=== PATIENT | female | born 1950 | race Caucasian/White ===

== ENCOUNTER 2020-02-12 10:48 | Outpatient (REF) | payer MEDICARE, MEDICAID, SELFPAY ==
--- NOTE | 2020-02-12 | MM_ITS ---
EXAMINATION: MM SCREENING DIGITAL BREAST TOMOSYNTHESIS, BILATERAL CLINICAL INFORMATION: Screening. Asymptomatic. The lifetime risk of breast cancer based on the Tyrer-Cuzick Model is 2.9%. COMPARISON: Mammography: October 22, 2018 and studies dating back to February 13, 2011 TECHNIQUE: Digital breast tomosynthesis is performed in both the craniocaudal and mediolateral oblique views along with computer-aided detection (CAD). Synthesized 2D images are generated from the tomosynthesis. FINDINGS: The breasts are heterogeneously dense, which may obscure small masses (ACR BI-RADS breast composition Category c). There are no significant masses, abnormal calcifications, or other abnormalities. MM/MM tomosynthesis screening BI IMPRESSION: There are no significant changes from prior study. ASSESSMENT: BI-RADS 1: Negative RECOMMENDATION: Routine annual mammography screening. This patient's information was entered into a reminder system with a target due date for their next mammogram.
== END 2020-02-12 10:49 | disposition home or self-care (01) ==
LOC: HO.MAMMO 10:48
PROVIDERS: PCP Family Medicine; Visit Provider Family Medicine
DX: Z12.31 Encounter for screening mammogram for malignant neoplasm of breast (principal)
CPT/HCPCS: 77063; 77067

== ENCOUNTER 2020-03-01 12:56 | Outpatient (REF) | payer MEDICARE, MEDICAID, SELFPAY | END 2020-03-01 12:57 | disposition home or self-care (01) | LOC: HO.LAB 12:56 | PROVIDERS: Visit Provider Internal Medicine | DX: Z20.828 Contact with and (suspected) exposure to other viral communicable diseases (principal) | CPT/HCPCS: C9803; U0003 ==

== ENCOUNTER 2020-03-08 10:06 | Outpatient (REF) | payer MEDICARE, MEDICAID, SELFPAY | END 2020-03-08 10:07 | disposition home or self-care (01) | LOC: HO.LAB 10:06 | PROVIDERS: PCP Family Medicine; Visit Provider Internal Medicine | DX: Z20.822 Contact with and (suspected) exposure to COVID-19 (principal) | CPT/HCPCS: 36415; C9803; U0003 ==

== ENCOUNTER 2020-03-22 09:00 | Outpatient (REF) | payer MEDICARE, MEDICAID, SELFPAY | END 2020-03-22 09:01 | disposition home or self-care (01) | LOC: HO.LAB 09:00 | PROVIDERS: Visit Provider Internal Medicine | DX: Z20.822 Contact with and (suspected) exposure to COVID-19 (principal) | CPT/HCPCS: 36415; C9803; U0003 ==

== ENCOUNTER 2021-03-03 10:00 | Outpatient (REF) | payer MEDICARE, MEDICAID, SELFPAY ==
[2021-03-03 11:06] LABS: COVID-19 Test Negative (Negative); IDNOW Serial# 55D5AD1C
== END 2021-03-03 10:01 | disposition home or self-care (01) ==
LOC: HO.LAB 10:00
PROVIDERS: Visit Provider Internal Medicine
DX: Z20.822 Contact with and (suspected) exposure to COVID-19 (principal)
CPT/HCPCS: 36415; 87635; C9803

== ENCOUNTER 2021-03-07 10:02 | Outpatient (REF) | payer MEDICARE, SELFPAY ==
--- NOTE | ~2021-03-07 | MM_ITS ---
EXAMINATION: MM SCREENING DIGITAL BREAST TOMOSYNTHESIS, BILATERAL CLINICAL INFORMATION: Screening. Asymptomatic. The lifetime risk of breast cancer based on the Tyrer-Cuzick Model is 3%. COMPARISON: Mammography: 02/12/2020, 10/22/2018, 10/04/2017 TECHNIQUE: Digital breast tomosynthesis is performed in both the craniocaudal and mediolateral oblique views along with computer-aided detection (CAD). Synthesized 2D images are generated from the tomosynthesis. FINDINGS: There are scattered areas of fibroglandular density (ACR BI-RADS breast composition Category b). There are no significant masses, abnormal calcifications, or other abnormalities. Breast tissue composition borders on heterogeneously dense in the upper outer quadrant. Parenchymal pattern is similar to prior studies. No developing density. No significant changes. MM/MM tomosynthesis screening BI IMPRESSION: No mammographic evidence of malignancy. ASSESSMENT: BI-RADS 1: Negative RECOMMENDATION: Routine annual mammography screening. This patient's information was entered into a reminder system with a target due date for their next mammogram.
== END 2021-03-07 10:03 | disposition home or self-care (01) ==
LOC: HO.MAMMO 10:02
PROVIDERS: Visit Provider Registered Nurse
DX: Z12.31 Encounter for screening mammogram for malignant neoplasm of breast (principal)
CPT/HCPCS: 77063; 77067

== ENCOUNTER 2021-06-02 07:37 | Outpatient (REF) | payer OTHER, SELFPAY ==
--- NOTE | ~2021-06-02 | MM_ITS ---
EXAMINATION: BONE DENSITOMETRY CLINICAL INDICATION: Screening. COMPARISON: Previous BD dated 06/18/2018 and baseline BD dated 11/04/2010. TECHNIQUE: Using a The RealReal DXA System (software version: 13.1) manufactured by [employer], dual-energy x-ray absorptiometry was performed of the lumbar spine and left hip. The images are of good technical quality. Summary results are attached. FINDINGS: AP SPINE L1-L4: Current: BMD 0.906 g/cm2, Z-score -0.6, T-score -2.3, osteopenia, 2.9% decrease from previous, 7.8% decrease from baseline (<5% change is not significant). Prior: BMD 0.933 g/cm2. Baseline: BMD 0.983 g/cm2. LEFT FEMUR, NECK: Current: BMD 0.800 g/cm2, Z-score 0.0, T-score -1.7, osteopenia. Prior: BMD 0.794 g/cm2. Baseline: BMD 0.832 g/cm2. LEFT FEMUR, TOTAL: Current: BMD 0.785 g/cm2, Z-score -0.3, T-score -1.8, osteopenia, 3.2% decrease from previous, 3.6% decrease from baseline (<5% change is not significant). Prior: BMD 0.811 g/cm2. Baseline: BMD 0.814 g/cm2. IDENTIFIED RISK FACTORS: Menopause, hyperthyroid, low calcium intake, secondary osteoporosis. HISTORY OF FRACTURE: None listed. MEDICATIONS: Calcium. MM/XR DEXA axial skeleton IMPRESSION: 1. DIAGNOSIS: Osteopenia based on the lowest T-score value of -2.3 in the lumbar spine applying World Health Organization criteria. 2. 10-YEAR FRACTURE RISK PREDICTION, FRAX: Major osteoporotic fracture (clinical spine, forearm, hip or shoulder) 6.0%. Hip fracture 1.0%. 3. Treatment Recommendations: NOF guidelines recommend consideration for treatment in postmenopausal women and men age 50 and older presenting with the following: -A hip or vertebral (clinical or morphometric) fracture. -T-score less than or equal to -2.5 at the femoral neck or spine after appropriate evaluation to exclude secondary causes. -Low bone mass at the hip or spine and a 10-year fracture probability by FRAX of greater than or equal to 3% for hip fracture or greater than or equal to 20% for major osteoporotic fracture based on the [place] adapted WHO algorithm. 4. Other Recommendations: All treatment decisions require clinical judgment and consideration of individual patient factors, including patient preferences, comorbidities, previous drug use, risk factors not captured in the FRAX model (e.g. frailty, falls, vitamin D deficiency, increased bone turnover, interval significant decline in bone density) and possible under or overestimation of fracture risk by FRAX. Additional medical evaluation for secondary cause of low bone mineral density may be appropriate. FUTURE SCAN RECOMMENDATION: People with diagnosed cases of osteoporosis or at high risk for fracture should have regular bone mineral density tests. For patients eligible for Medicare, routine testing is allowed once every 2 years. The testing frequency can be increased to one year for patients who have rapidly progressing disease, those who are receiving or discontinuing medical therapy to restore bone mass, or have additional risk factors.
== END 2021-06-02 07:38 | disposition home or self-care (01) ==
LOC: HO.MAMMO 07:37
PROVIDERS: PCP Registered Nurse; Visit Provider Registered Nurse
DX: Z13.820 Encounter for screening for osteoporosis (principal); Z78.0 Asymptomatic menopausal state; M85.80 Other specified disorders of bone density and structure, unspecified site
CPT/HCPCS: 77080

== ENCOUNTER 2021-08-15 09:31 | Outpatient (REF) | payer OTHER, SELFPAY ==
--- NOTE | ~2021-08-15 | XR_ITS ---
EXAMINATION: XR PELVIS CLINICAL INFORMATION: Low back pain COMPARISON: None TECHNIQUE: AP view of the pelvis. FINDINGS: The bones and soft tissues are normal. No fracture. Sacroiliac and hip joints are normal. Pubic symphysis is normal. No abnormal soft tissue calcifications. XR/XR pelvis 1-2V IMPRESSION: Unremarkable AP pelvis exam.
--- NOTE | ~2021-08-15 | XR_ITS ---
EXAMINATION: XR LUMBOSACRAL SPINE WITH OBLIQUES CLINICAL INFORMATION: Low back pain COMPARISON: None TECHNIQUE: AP, both oblique, and lateral views of the lumbar spine. Lateral view of the lumbosacral junction. FINDINGS: Bone alignment is normal. No fracture or dislocation is seen. There is mild degenerative disc disease at L5-S1. There is lower lumbar spine facet arthritis. No pars defect is seen. There is evidence of atherosclerotic disease. XR/XR lumbar spine 4V min IMPRESSION: Degenerative disc disease at L5-S1 and lower lumbar spine facet arthritis.
== END 2021-08-15 09:32 | disposition home or self-care (01) ==
LOC: HO.XRAY 09:31
PROVIDERS: PCP Registered Nurse; Visit Provider Registered Nurse
DX: M54.50 Low back pain, unspecified (principal)
CPT/HCPCS: 72110; 72170

== ENCOUNTER 2022-03-13 10:12 | Outpatient (REF) | payer OTHER, SELFPAY ==
--- NOTE | ~2022-03-13 | MM_ITS ---
EXAMINATION: MM SCREENING DIGITAL BREAST TOMOSYNTHESIS, BILATERAL CLINICAL INFORMATION: Screening. Asymptomatic. The lifetime risk of breast cancer based on the Tyrer-Cuzick Model is 2.3%. COMPARISON: Mammography: March 07, 2021 and studies dating back to June 02, 2015 TECHNIQUE: Digital breast tomosynthesis is performed in both the craniocaudal and mediolateral oblique views along with computer-aided detection (CAD). Synthesized 2D images are generated from the tomosynthesis. FINDINGS: The breasts are heterogeneously dense, which may obscure small masses (ACR BI-RADS breast composition Category c). There are no significant masses, abnormal calcifications, or other abnormalities. MM/MM tomosynthesis screening BI IMPRESSION: No significant changes from prior exam. ASSESSMENT: BI-RADS 1: Negative RECOMMENDATION: Routine annual mammography screening. This patient's information was entered into a reminder system with a target due date for their next mammogram.
== END 2022-03-13 10:13 | disposition home or self-care (01) ==
LOC: HO.MAMMO 10:12
PROVIDERS: PCP Registered Nurse; Visit Provider Registered Nurse
DX: Z12.31 Encounter for screening mammogram for malignant neoplasm of breast (principal)
CPT/HCPCS: 77063; 77067

== ENCOUNTER 2023-03-19 10:01 | Outpatient (REF) | payer OTHER, SELFPAY | END 2023-03-19 10:02 | disposition home or self-care (01) | LOC: HO.MAMMO 10:01 | PROVIDERS: PCP Registered Nurse; Visit Provider Registered Nurse | DX: Z12.31 Encounter for screening mammogram for malignant neoplasm of breast (principal) | CPT/HCPCS: 77063; 77067 ==

== ENCOUNTER → 2023-03-19 10:30 | Outpatient (BNV) | payer OTHER, SELFPAY | PROVIDERS: PCP Registered Nurse; Visit Provider Radiology Diagnostic Radiology | DX: Z12.31 Encounter for screening mammogram for malignant neoplasm of breast (principal) | CPT/HCPCS: 77063; 77067 ==

== ENCOUNTER 2023-04-16 09:52 | Outpatient (REF) | payer OTHER, SELFPAY ==
--- NOTE | ~2023-04-16 | XR_ITS ---
EXAMINATION: XR LUMBOSACRAL SPINE CLINICAL INFORMATION: Patient daughter states low back pain, right-sided, for one week, no injury. Difficult to get images of L5-S1, best images obtained per technologist. COMPARISON: 08/15/2021 lumbar spine radiographs. TECHNIQUE: Three views of the lumbosacral spine.Difficult to get images of L5-S1, best images obtained per technologist. FINDINGS: The bones are diffusely demineralized. Facet arthritis in the lower lumbar spine. Degenerative changes with sclerosis on images of the bilateral sacroiliac joints. Degenerative changes in the imaged lower thoracic spine. Redemonstration of mild endplate concavities at L4 and L5. Mild degenerative changes with loss of disc space height at L4-L5 and L5-S1. Visualization limited due to overlying bone and soft tissue structures. Atherosclerotic aortoiliac calcifications. XR/XR lumbar spine 2-3V IMPRESSION: 1. Mild degenerative disc disease at L4-L5 and L5-S1. 2. Facet arthritis in the lower lumbar spine. 3. Degenerative changes in the bilateral sacroiliac joints.
[2023-04-16 12:35] LABS: Alanine Aminotransferase 25 U/L (0-31); Albumin Level 3.9 g/dL (3.5-5.0); Alkaline Phosphatase 138 U/L (39-117); Anion Gap 15 (12-20); Aspartate Amino Transferase 28 U/L (5-31); Bilirubin Total 0.8 mg/dL (0.0-1.0); Blood Urea Nitrogen 18 mg/dL (9-16); Calcium 9.9 mg/dL (8.4-10.2); Carbon Dioxide 26 mmol/L (22-29); Chloride 105 mmol/L (96-108); Cholesterol 130 mg/dL (<200); Estimated Glomerular Filt Rate > 60; Glucose Random 97 mg/dL (60-115); HDL Cholesterol 46 mg/dL (>40); LDL Cholesterol Calculated 68 mg/dL (<100); Potassium 3.9 mmol/L (3.3-5.1); Sodium 142 mmol/L (135-145); Total Protein 7.5 g/dL (6.5-8.0); Triglycerides 81 mg/dL (<150)
== END 2023-04-16 09:53 | disposition home or self-care (01) ==
LOC: HO.HHCL 09:52
PROVIDERS: Visit Provider Registered Nurse
DX: M54.50 Low back pain, unspecified (principal); I10 Essential (primary) hypertension; G89.29 Other chronic pain
CPT/HCPCS: 36415; 72100; 80053; 80061

== ENCOUNTER 2023-06-11 10:28 | Outpatient (REF) | payer OTHER, SELFPAY ==
[2023-06-11 12:33] LABS: Alanine Aminotransferase 16 U/L (0-31); Albumin Level 3.8 g/dL (3.5-5.0); Alkaline Phosphatase 139 U/L (39-117); Aspartate Amino Transferase 21 U/L (5-31); Bilirubin Direct 0.3 mg/dL (0.0-0.5); Bilirubin Total 0.7 mg/dL (0.0-1.0)
[2023-06-11 14:46] LABS: Gamma Glutamyl Transpeptidase 16 U/L (7-33)
== END 2023-06-11 10:29 | disposition home or self-care (01) ==
LOC: HO.HHCL 10:28
PROVIDERS: Visit Provider Registered Nurse
DX: E78.2 Mixed hyperlipidemia (principal); E05.90 Thyrotoxicosis, unspecified without thyrotoxic crisis or storm; R74.8 Abnormal levels of other serum enzymes
CPT/HCPCS: 36415; 80076; 82977

== ENCOUNTER 2023-06-21 10:08 | Outpatient (REF) | payer OTHER, SELFPAY ==
[2023-06-21 11:28] LABS: MANUAL DIFF FLAG NO
[2023-06-21 11:40] LABS: Basophils Percent Auto 0.7 % (0-2); Eosinophils Absolute Auto 0.1 X10*3/uL (0.0-0.4); Eosinophils Percent Auto 2.3 % (0-4); Hematocrit 39.9 % (37.0-47.0); Hemoglobin 13.2 g/dl (12.0-16.0); Imm Gran Abs Auto 0.02 X10*3/uL (0.00-0.03); Imm Gran Pct Auto 0.4 % (0.0-0.4); Lymphocytes Absolute Auto 2.2 X10*3/uL (1.2-4.9); Lymphocytes Percent Auto 39.5 % (20-40); Mean Corpuscular HGB Conc 33.1 g/dl (31.0-35.0); Mean Corpuscular Hemoglobin 28.8 pg (27.0-33.0); Mean Corpuscular Volume 87.1 fL (80.0-98.0); Mean Platelet Volume 10.4 fL (9.4-12.3); Monocytes Absolute Auto 0.7 X10*3/uL (0.1-1.2); Monocytes Percent Auto 11.6 % (2-11); Neutrophils Absolute Auto 2.5 x10*3/uL (2.0-8.3); Neutrophils Percent Auto 45.5 % (45-73); Platelet Count 262 X10*3/uL (160-400); Red Blood Count 4.58 X10*6/uL (4.20-5.50); Red Cell Distribution Width 12.8 % (11.0-16.0); White Blood Count 5.6 X10*3/uL (4.8-10.8)
[2023-06-25 14:03] LABS: Alk.Phos Iso. Macrohepatic 0 % (<=0); Alk.Phos Isoenzymes Bone 61 % (28-66); Alk.Phos Isoenzymes Intest 0 % (1-24); Alk.Phos Isoenzymes Liver 39 % (25-69); Alk.Phos Isoenzymes Placental 0 % (<=0); Alk.Phos Isoenzymes Total 137 U/L (37-153)
== END 2023-06-21 10:09 | disposition home or self-care (01) ==
LOC: HO.HHCL 10:08
PROVIDERS: Visit Provider Registered Nurse
DX: R74.8 Abnormal levels of other serum enzymes (principal)
CPT/HCPCS: 36415; 84080; 85025

== ENCOUNTER 2023-09-10 10:23 | Outpatient (REF) | payer OTHER, SELFPAY ==
[2023-09-10 11:57] LABS: Alanine Aminotransferase 18 U/L (0-31); Alkaline Phosphatase 130 U/L (39-117); Aspartate Amino Transferase 21 U/L (5-31); Bilirubin Direct 0.3 mg/dL (0.0-0.5); Bilirubin Total 0.7 mg/dL (0.0-1.0); Free T4 (Free Thyroxine) 1.44 ng/dL (0.71-1.85); Thyroid Stimulating Hormone < 0.01 uIU/mL (0.32-4.0); Total Protein 7.2 g/dL (6.5-8.0)
== END 2023-09-10 10:24 | disposition home or self-care (01) ==
LOC: HO.HHCL 10:23
PROVIDERS: Visit Provider Registered Nurse
DX: R74.8 Abnormal levels of other serum enzymes (principal)
CPT/HCPCS: 36415; 80076; 84439; 84443

== ENCOUNTER 2024-03-31 10:52 | Outpatient (REF) | payer OTHER, SELFPAY ==
--- OUTSIDE RECORDS SUMMARY | 2024-03-31 15:46 | XMS_ITS | Encounter Summary ---
Author Organization [employer] [facility] Address [address] [place] [address] Care Team Providers Care Protective Signal Installer Name Role Phone [facility] DISABILITY REPRESENTATIVE Primary Care Provider [phone] Encounter Details Date Type Department Care Team (Late st Contact Info) Description 06/13/2023 Orders Only [facility] MEDICINE [address] [place] [address] ProviderAura MD Social History Tobacco Use Types Packs/Day Years Used Date Smoking Tobacco: Never Smokeless Tobacco: Never Alcohol Use Standard Drinks/Week Comments Never 0 (1 standard drink = 0.6 oz pur e alcohol) Alcohol Answer Date Recorded Frequency of Alcohol Consumption Not on file 06/11/2023 Average Number of Drinks Not on file 024 Frequency of Binge Drinking Not on file 10/2023 Score 0 06/11/2023 Depression Answer Date Recorded Patient Health Questionnaire-9 Score 1 06/11/2023 Patient Health Questionnaire-9 Score 1 06/11/2023 Last PHQ-9: Questionnaire Data Not on file 0 06/11/2023 Depression Answer Date Recorded Patient Health Questionnaire-2 Score 0 06/11/2023 Comments Unknown Sex and Gender Information Value Date Recorded Sex Assigned at Female 01/02/2022 10:14 AM EDT Legal Sex Female 10:14 AM EDT Gender Identity Female 01/02/2022 10:14 AM EDT Sexual Orientation Straight 01/02/2022 10 :14 AM EDT documented as of this encounter Plan of Treatment Upcoming Encounters Date Type Department Care Team (Late st Contact Info) Description 05/19/2024 10:00 AM EDT Office Visit [facility] MEDICINE [address] [place] [address] Katja Tony FNP [address] [place] [address] documented as of this encounter Procedures Procedure Name Priority Date/Time Associated Diagnosis Comments HM COLONOSCOPY Routine 08/24/2015 9:01 AM EDT documented in this encounter Results * Hm Colonoscopy (08/24/2015 9:01 AM EDT) us Historical Provider HEALTH MAINTENANCE Final Result documented in this encounter Visit Diagnoses Not on filedocumented in this encounter Additional Health Concerns Assessment Noted Time PHQ-9 Depression Total Score: 1 06/11/19 24 10:23 AM EDT documented as of this encounter Care Teams Protective Signal Installer Relationship Specialty Start Date End Date Katja Tony FNP [address] [place] [address] PCP - General Family Medicine 11/30/20 documented as of this encounter
--- OUTSIDE RECORDS SUMMARY | 2024-03-31 15:46 | XMS_ITS | Encounter Summary ---
Author Organization [employer] [facility] Address [address] [place] [address] Care Team Providers Care Marketing Data Specialist Name Role Phone [facility] Primary Care Provider [phone] Reason for Visit * Reason Onset Date Comments Referral 07/23/2023 Encounter Details Date Type Department Care Team ([facility] st Contact Info) Description 07/23/2023 Telephone [facility] MEDICINE [address] [place], [place] [phone] [facility] [address] [place], [place] [phone] Referral Social History Tobacco Use Types Packs/Day Years [...] AM EDT documented as of this encounter Miscellaneous Notes * Telephone Encounter - Karey Vallecillo RN - 07/23/2023 1:16 PM EDT Pt.'s PT referral from prior pt. To going in person to schedule appt., please place referral again if indicated. Original referral was for: Diagnosis M54.2 (ICD-10-CM) - Acute neck pain M62.838 (ICD-10-CM) - Muscle spasm And sent to [facility] in [place] * Telephone Encounter - Riaz Zaman - 07/23/2023 12:47 PM EDT Tc from pt calling in regards to physical therapy referral. Pt stated she did not receive a call from physical therapy for an appt so they decide to go today and they were informed pt would need new referral due to amount of time current referral was sent. If any questions please contact pt at [phone]. [facility] fax: [phone]. documented in this encounter Plan of Treatment Upcoming Encounters Date Type Department Care Team (Late st Contact Info) Description 05/19/2024 10:00 AM EDT Office Visit [facility] MEDICINE [address] [place] [address] Katja Tony FNP [address] [place] [address] documented as of this encounter Visit Diagnoses Not on filedocumented in this encounter Additional Health Concerns Assessment Noted Time PHQ-9 Depression Total Score: 1 06/11/19 24 10:23 AM EDT documented as of this encounter Care Teams Marketing Data Specialist Relationship Specialty Start Date End Date Katja Tony FNP [address] [place] [address] PCP - General Family Medicine 11/30/20 documented as of this encounter
--- OUTSIDE RECORDS SUMMARY | 2024-03-31 15:46 | XMS_ITS | Encounter Summary ---
Author Organization [employer] [facility] Address [address] [place] [address] [address] [place] [address] Care Team Providers Care Customer Service Operator Name Role Phone [facility] Primary Care Provider [phone] Reason for Visit * Reason Comments Med Refill Encounter Details Date Type Department Care Team (Late st Contact Info) Description 05/10/[address] [facility] MEDICINE [address] [place], [place] [phone] [facility] [address] [place], [place] [phone] Social History Tobacco Use Types Packs/Day Years Used Date Smoking Tobacco: Never Smokeless Tobacco: Never Alcohol Use Standard Drinks/Week Comments Never 0 (1 standard drink = 0.6 oz pur e alcohol) Depression Answer Date Recorded Patient Health Questionnaire-9 Score 0 04/16/2023 Patient Health Questionnaire-9 Score 0 04/16/2023 Last PHQ-9: Questionnaire Data Not on file 0 04/16/2023 Depression Answer Date Recorded Patient Health Questionnaire-2 Score 0 04/16/2023 Comments Unknown Sex and Gender Information Value [...] Description 05/19/2024 10:00 AM EDT Office Visit [facility] MEDICINE [address] [place] [address] [facility], [address] [place] [address] documented as of this encounter Visit Diagnoses Not on filedocumented in this encounter Additional Health Concerns Assessment Noted Time PHQ-9 Depression Total Score: 0 04/16/19 24 9:00 AM EST documented as of this encounter Care Teams Customer Service Operator Relationship Specialty Start Date End Date Katja Tony FNP [address] [place] [address] PCP - General Family Medicine 11/30/20 documented as of this encounter
--- OUTSIDE RECORDS SUMMARY | 2024-03-31 15:46 | XMS_ITS | Data Portability ---
Author Organization [email or web address] Address [address] [place] [id number] Care Team Providers Care Special Procedures Nurse Name Role Phone [facility] Referring Provider [facility] Referring Provider Assessment No assessment recorded. Plan of Treatment Reminders Order Date Submit Date Provider Last Modified By Organization Details Last Modified Time Details Appointments None recorded. Lab None recorded. Referral None recorded. Procedures None recorded. Surgeries None recorded. Imaging None recorded. Medication Orders azithromyci n 250 mg tablet 2021 [id number], [address], [place], [id number], 2 14:30:31 amoxicillin 875 mg-potassiu m clavulanate 125 mg tablet 2021 022 [facility][id number], [address], [place], [id number], 2 14:30:32 Patient TargetsNo targets recorded. Patient InstructionsNo instructions recorded. Reason for Referral None Reported. Medical Equipment None Reported. Medications Name Sig Start Date Stop Date Status Note LastModified by Organization Details LastModified Time azithromycin 250 mg tablet TAKE 2 TABLETS (500 MG) BY ORAL ROUTE ONCE DAILY FOR 1 DAY THEN 1 TABLET (250 MG) BY ORAL ROUTE ONCE DAILY FOR 4 DAYS active Not Available Not Available No t Available ibuprofen 800 mg tablet active Not Available Not Available No t Available enalapril 5 mg-hydrochlorot hiazide 12.5 mg tablet TAKE 1 TABLET BY MOUTH DAILY active Not Available Not Available No t Available acetaminophen 500 mg tablet TAKE 2 TABLETS BY MOUTH EVERY 8 HOURS NEEDED active Not Available Not Available No t Available ibuprofen 400 mg tablet TAKE 1 TABLET BY MOUTH EVERY 4 TO 6 HOURS NEEDED active Not Available Not Available No t Available methimazole 5 mg tablet TAKE 1 TABLET BY MOUTH DAILY active Not Available Not Available No t Available amoxicillin 875 mg-potassium clavulanate 125 mg tablet TAKE 1 TABLET BY MOUTH EVERY 12 HOURS FOR 5 DAYS active Not Available Not Available No t Available rosuvastatin 10 mg tablet TAKE 1 TABLET BY MOUTH EVERY DAY active Not Available Not Available No t Available calcium 600 mg (as carbonate)-shelby min D3 10 mcg (400 unit) tablet TAKE 1 TABLET BY MOUTH TWICE DAILY active Not Available Not Available No t Available Vitals Date Recorded Heart rate Body temperature Respiratory rate Oxygen saturation Oxygen saturation in Arterial blood by Pulse oximetry Systolic blood pressure Diastolic blood pressure Provider Name and Address Organization Details Last Updated DateTime 2 90 /min 98.5 [degF] 18 /min 98 % 98 % 120 mm[Hg] 70 mm[Hg] Not Available [facility] - production 2 14:12:20 Social History None recorded. Functional Status None recorded. Mental Status None recorded. Family History Nothing Reported. Medical History No medical history recorded. Gynecological HistoryNo gynecological history recorded. Obstetrics History GPAL:G 0 P 0 0 0 0 Past Encounters Encounter ID Performer Location Encounter Start Date Encounter Closed Date Diagnosis/Indication Diagnosis SNOMED-CT Code Diagnosis ICD10 Code Diagnosis Note [id number] Татьяна Salmon MD [facility] [address] [place] [phone] 09/02/2021 14:12:18 11/02/2021 11:30:30 Dyspnea 409404804 R06.00 dyspnea x1 week. R side w/ upper>lowe r ronchi and non-produc tive cough. Covid negative x1. No systemic symptoms. worse with lying flat. never had similar sx. walked a mile yesterday. no weight gain and no edema. no recent travel, no exposure to TB or other sick contacts. never smoker. feels like something is stuck in chest - most likely CAP vs atypical pna. will prescribe augmentin BID + azithro x5d- if not improved in3-5d, would need consider broader dx which will require CXR Health Concerns Section Related Observation LastModified by Organization Detai ls LastModified Time None Recorded Concern Status LastModified by Organization Details LastModified Time None Recorded Advance Directives Directive None Recorded Payers Encounter Date Sequence Insurance Name Policy Number Policy Dangelo Covered Member ID Dangelo Member ID Guarantor Name 09/02/2021 1 [facility] - DOS PRIOR TO 2022 - DUAL ELIGIBLE (MEDICARE REPLACEMENT/AD VANTAGE - HMO) Shanelle Segura [id number] Shanelle Segura Notes Date Note Type Note Provider Name and Address Organization Details Recorded Time 09/02/2021 text/html HPI: ALLERGIC TO ; SULFAMETHOXAOLE, TRIMETHOPRIM Patient with coarse cough and congestion per report. Covid Test negative x 2. ................... ................... ................... ................... ................... ................... ................... ........ CRC Nursing Assessment: Comments: CRC RN did not require any additional information to process this visit. ................... ................... ................... ................... ................... ................... ................... ........ Bakery Associate Note: Pt states [place] was [place] the beach last [place] and since that night she has felt like she had something in her lungs. Pt states she just feels SOB. Pt denies fever, n/v/d, headache, abd pain. Complains of dry cough. Vitals wnl. Right lung with rhonchhi especially in upper lobe. left lung clear in all das. [facility] contacted. Azythromicine and augmentin prescribed for Pt. Red flags discussed ................... ................... ................... ................... ................... ................... ................... ........ Disposition: Fulfilled Татьяна Salmon MD [address] [place] [address],[address] [facility], [place], [phone], [employer] [facility] [employer] 09/02/2021 17:51:11 OBGyn Episode No OBEpisode recorded.
--- OUTSIDE RECORDS SUMMARY | 2024-03-31 15:46 | XMS_ITS | Encounter Summary ---
Author Organization [employer] Address [address] [place] [address] Care Team Providers Care Car Sander Name Role Phone [facility] Primary Care Provider [phone] Encounter Details Date Type Department Care Team (Latest Contact Info) Description 03/17/2024 Travel Social History Tobacco Use Types Packs/Day Years [...] Date Recorded Patient Health Questionnaire-9 Score 0 09/10/2023 Patient Health Questionnaire-9 Score 0 09/10/2023 Last PHQ-9: Questionnaire Data Not on file 0 09/10/2023 Housing Stability Answer Date Recorded What is your housing situation today? I have nay myles 09/10/[address] you li ve. Do you have problems with any of the following? None of the above 09/10/2023 Food Insecurity Answer Date Recorded Within the past 12 months, y ou worried that your food would run out before you got money to buy more: Never True 09/10/2023 Within the past 12 months,th e food you bought just didn't last and you didn't have enough money to get more: Never True 10/2023 Transportation Answer Date Recorded In the past 12 months, has l ack of transportation kept you from medical appts, meetings, work or from getting things needed for daily living? No 09/10/2023 Utilities Answer Date Recorded In the past 12 months, has t he electric, gas, oil or water company threatened to shut off services in your home? No 09/10/2023 Depression Answer Date Recorded Patient Health Questionnaire-2 Score 0 09/10/2023 Internet Access Answer Date Recorded Internet Access Q1 Yes 11/05/2023 Internet Access Q2 Not on file 11/05/2023 Comments Unknown Sex and Gender Information Value [...] Description 05/19/2024 10:00 AM EDT Office Visit [facility] MEDICINE [address] [place] [address] Katja Tony FNP [address] [place] [address] documented as of this encounter Visit Diagnoses Not on filedocumented in this encounter Additional Health Concerns Assessment Noted Time PHQ-9 Depression Total Score: 0 09/10/19 24 9:47 AM EDT documented as of this encounter Care Teams Car Sander Relationship Specialty Start Date End Date Katja Tony FNP [address] [place] [address] PCP - General Family Medicine 11/30/20 documented as of this encounter
--- OUTSIDE RECORDS SUMMARY | 2024-03-31 15:46 | XMS_ITS | Clinical Summary ---
Author Organization [employer] Address [address] [facility] 7t [place] [address] Care Team Providers Care Cuff Slitter Name Role Phone [facility] Primary Care Provider [phone] Allergies No known active allergies Medications lidocaine (Lidoderm) 5 % patchIndication s:Acute neck pain,Muscle spasm Apply topically to affected areas. Leave on for up to 12 hours 30 patch 1 06/11/19 24 Active Calcium Carb-Cholecalci ferol 600-10 MG-MCG tablet TAKE 1 TABLET BY MOUTH TWICE DAILY. 180 tablet 1 07/06/19 24 Active calcium carbonate (Calcium 600) 600 MG tabletIndicatio ns:Osteopenia, unspecified location Take 1 tablet (600 mg) by mouth with breakfast and with evening meal. 60 tablet 07/20/19 24 025 Active cholecalciferol (Vitamin D3) 25 MCG (1000 UT) tabletIndicatio ns:Osteopenia, unspecified location Take 1 tablet (1,000 Units) by mouth Once per day. 30 tablet 11 07/20/19 24 Active rosuvastatin (Crestor) 10 MG tablet TAKE 1 TABLET BY MOUTH EVERY MORNING 90 tablet 1 11/07/19 24 Active Enalapril-hydro CHLOROthiazide 5-12.5 MG tablet TAKE 1 TABLET BY MOUTH EVERY MORNING 90 tablet 1 12/28/19 24 Active Blood Pressure kitIndications: Primary hypertension Use as directed 1 kit 03/17/19 25 Active ibuprofen 400 MG tabletIndicatio ns:Acute neck pain TAKE 1 TABLET BY MOUTH EVERY 4 TO 6 HOURS NEEDED 30 tablet 1 03/17/19 25 Active ibuprofen 400 MG tablet TAKE 1 TABLET BY MOUTH EVERY 4 TO 6 HOURS NEEDED 30 tablet 04/18/19 24 025 Discontinued(Re order (will not trigger notification to Pharmacy)) Active Problems Problem Noted Date Diagnosed Date Healthcare maintenance 04/26/2023 Overview (09/10/2023): Mammo: 03/2023 neg Pap: 01/2022-NIL HPV neg; OK to discontinue per patient preference. No prior abnormal C-scope: Neg 2015--repeat due 2025 BMD: Osteopenia. Due for repeat DEXA-->ordered 04/2023 Immunizations: Declines covid and shingles vaccine Dental q. 3 months UTD on eye exam Declines COVID Declines 2nd shingles Will consider RSV Primary hypertension 04/26/2023 Overview (04/26/2023): Enalapril-hydrochlorothiazide 5/12.5 - Aerobic exercise to reduce BP. Initial goal of 30 min walk 3-5x/week. Increase as tolerated. - low-sodium diet (goal: <2g/day) and heart healthy diet such as DASH to reduce BP and prevent ASCVD. - Home BP monitoring 1-2 x day with goal of <140/90. - Seek immediate medical attention for chest pain, palpitations, SOB, syncope, or sudden changes in mental status. - Do not change or discontinue current prescriptions without first consulting health care provider Assessment & Plan (04/26/2023 1:55 PM EST): Well controlled Continue current regimen Mixed hyperlipidemia 04/26/2023 Overview (04/26/2023): Rosuvastatin 10mg daily Hyperthyroidism 01/05/2021 Osteopenia 07/05/2018 Vitamin D deficiency 07/05/2018 Polyp of colon 10/31/2011 Encounters Date Type Department Care Team Description 03/17/2024 2:30 PM EST Office Visit [facility] [address] [place] [address] [facility] Primary hypertension (Primary Dx); Osteopenia, unspecified location; Acute neck pain; Encounter for immunization 03/17/2024 Travel from Last 3 Months Immunizations Name Administration Dates Next Due Hep B, adult 07/08/2009,11/03/2008,09/29/2008 Influenza High-dose Quadriva lent Preservative Free 12/20/2021 Influenza injectable quadriv alent preservative free 04/16/2023 Influenza, High Dose Seasona l, Preservative Free 03/17/2024 Pneumococcal Conjugate PCV 13 06/04/2018 Pneumococcal Conjugate PCV 20 12/20/2021 TD (adult), 2 Lf tetanus tox oid, preservative free, adsorbed 09/18/2014 Tdap 04/16/2023 Zoster, Recombinant 09/20/2023,05/11/2021 Zoster, live 09/18/2014 Social History Tobacco Use Types Packs/Day Years Used Date Smoking Tobacco: Never Smokeless Tobacco: Never Tobacco Cessation:Counseling Given: Not Answered Alcohol Use Standard Drinks/Week Comments Never 0 [...] Orientation Straight 01/02/2022 10 :14 AM EDT Last Filed Vital Signs Vital Sign Reading Time Taken Comments Blood Pressure 136/80 03/17/2024 2:31 PM EST Pulse 74 03/17/2024 2:31 PM EST Temperature 36.1 ??C (96.9 ??F) 03/17/2024 2:31 PM ES T Respiratory Rate 18 03/17/2024 2:31 PM EST Oxygen Saturation 98% 09/10/2023 9:40 AM EDT Inhaled Oxygen Concentration - - Weight 63.2 kg (139 lb 6.4 oz) 03/17/2024 2:31 P M EST Height 157.5 cm (5' 2 ) 03/17/2024 2:31 PM EST Body Mass Index 25.5 03/17/2024 2:31 PM EST Plan of Treatment Upcoming Encounters Date Type Department Care Team (Late st Contact Info) Description 05/19/2024 10:00 AM EDT Office Visit [facility] [address] [place] [address] [facility] [address] [place] [address] Health Maintenance Due Date Last Done Comments CT Colonography 1950 FIT DNA/Cologuard 1950 FIT 1950 FOBT 1950 Sigmoidoscopy 1950 COVID-19 Vaccine ( season) 2023 03/28/2021, 06/01/2020, 05/04/2020 Mammogram 03/19/2024 03/19/2023, 11/2022, 06/02/2021, Additional history exists Alcohol/Substance Use Screening 06/10/2024 06/11/2023 Depression Screening 09/09/2024 09/10/2023, 09/10/19 24 SDOH Screening 09/09/2024 09/10/2023 Tobacco Screening 03/18/2025 03/18/2024 Colonoscopy 08/23/2025 08/24/2015 Colorectal Cancer Screening 08/23/2025 RSV Patients and Patients Aged 60 years or older (1 - 1-dose 75+ series) 2026 Lipid Panel 04/16/2028 04/16/2023, 12/03, 08/10/2021, Additional history exists DTaP/Tdap/Td Vaccines (2 - Td or Tdap) 04/16/2033 04/16/2023, 09/18/2014 Hepatitis B Vaccines Completed 07/08/2009, 11/03/2008, 09/29/2008 Hepatitis C Screening Completed 01/08/2020 Pneumococcal Vaccine: 65+ Years Completed 12/20/2021, 06/04/2018 Zoster Vaccines Completed 09/20/2023, 03/0 11/2021, 09/18/2014 Influenza Vaccine Completed 03/17/2024, , 12/20/2021 HIB Vaccines Aged Out No longer eligi ble based on patient's age to complete this topic HPV Vaccines Aged Out No longer eligi ble based on patient's age to complete this topic Hepatitis A Vaccines Aged Out No long er eligible based on patient's age to complete this topic IPV Vaccines Aged Out No longer eligi ble based on patient's age to complete this topic Meningococcal Vaccine Aged Out No иван javier eligible based on patient's age to complete this topic RSV under 20 months Aged Out No longe r eligible based on patient's age to complete this topic Rotavirus Vaccines Aged Out No longer eligible based on patient's age to complete this topic Procedures Procedure Name Priority Date/Time Associated Diagnosis Comments LIPID PANEL, STANDARD Routine 04/16/2023 9:55 AM EST Primary hypertension BI MAMMOGRAM SCREENING TOMOSYNTHESIS BILATERAL Routine 03/19/2023 10:28 AM EST ZZZ HISTORICAL HEPATITIS C AB W/REFL TO HCV RNA, QN, PCR Routine 01/08/2020 10:50 AM EST HM COLONOSCOPY Routine 08/24/2015 9:01 AM EDT from Last 3 Months or Most Recently Relevant to Health Maintenance Results * Lipid Panel, Standard (04/16/2023 9:55 AM EST) Triglycerides 81 <150 mg/dL [facility] Comment:Desirable Triglyceri de: less than 150 mg/dLBorderline High Triglyceride 150-199 mg/dLHigh Triglyceride: 200-499 mg/dLVery High Triglyceride: greater than or equal to 5OO mg/dL Cholesterol 130 <200 mg/dL [facility] Comment:Desirable Cholestero l: less than 200 mg/dLBorderline High Cholesterol: 200-239 mg/dLHigh Cholesterol: greater than 239 mg/dL LDL Cholesterol Calculated 68 <100 mg/dL [facility] Comment:Desirable LDL: less than 100 mg/dLNear Optimal/Above Optimal LDL: 110- 129 mg/dLBorderline High LDL: 130-159 mg/dLHigh LDL: 160-189 mg/dLVery High LDL: greater than or equal to 190 mg/dL HDL Cholesterol 46 >40 mg/dL [facility] Comment:Desirable HDL: great er than 40 mg/dL Note: This HDL assay may give artificially low results in patients with liver disease. Blood Venous blood specimen / Unknown 04/16/2023 9:55 AM EST 04/16/2023 11:24 AM EST [facility] COKE CRUSHER OPERATOR LAB BLOOD ORDERABLES Final Re sult [facility] [address] [place] [address] [phone] * BI Mammogram Screening Tomosynthesis Bilateral (03/19/2023 10:28 AM EST) Anatomical Region Laterality Modality Breast Bilateral Mammography 03/19/2023 10:2 8 AM EST Narrative 04/06/2023 2:10 PM EST ? [facility] ? [address] ?[place] [address] ? Mammography Report ? Signed ? Patient: Segura,Shanelle ?MR#: [id number] ?? [id number] ? : 1950 ?Acct:[id number] ? Age/Sex: 73 / F ?ADM Date: 03/19/23 ? Loc: HO.MAMMO ? Attending Dr: Katja Tony COKE CRUSHER OPERATOR ? Ordering Physician: Katja Tony COKE CRUSHER OPERATOR ?Results: 1Nega ?? tive ? Date of Service: 03/19/23 ?Follow Up: 1 Year From Orig ?? inal Mammogram ? Procedure(s): MM tomosynthesis screening BI ?? Accession Number(s): [id number] ? cc: Katja Tony COKE CRUSHER OPERATOR ? EXAMINATION: ?? MM SCREENING DIGITAL BREAST TOMOSYNTHESIS, BILATERAL ? CLINICAL INFORMATION: ? Screening. Asymptomatic. ? COMPARISON: ?? Mammography: This study is compared with prior exams dating back to ?? 2017. ? TECHNIQUE: ?? Digital breast tomosynthesis is performed in both the craniocaudal and ?? mediolateral oblique views along with computer-aided detection (CAD). ?? Synthesized 2D images are generated from the tomosynthesis. ? FINDINGS: ?? The breasts are heterogeneously dense, which may obscure small masses ?? (ACR BI-RADS breast composition Category c). ? There are no significant masses, abnormal calcifications, or other ?? abnormalities. ? MM/MM tomosynthesis screening BI ?? IMPRESSION: ?? No mammographic evidence of malignancy. ? ASSESSMENT: ? BI-RADS BI-RADS 1 - Negative ? RECOMMENDATION: ?? Routine annual mammography screening. ? 1 year F/U ? This examination should not preclude the clinical evaluation of a ?? suspicious palpable abnormality. ? This patient's information was entered into a reminder system with a ?? target due date for their next mammogram. ? Dictated By: ?Joana Garcia MD ? Signed By: ?<Electronically signed by Joana Garcia MD in OV> ? 04/06/23 1406 ? DD/ 1028 ? TD/TT: ? Flue Dust Laborer: ? Procedure Note Lucas, Matthew - 04/06/[address] [facility] [address] [place], [place] [address] Mammography Report Signed Patient: Sharan Segura#: [id number] : 2Acct:[id number] Age/Sex: 73 / FADM Date: 03/19/23 Loc: HO.MAMMO Attending Dr: Katja Tony COKE CRUSHER OPERATOR Ordering Physician: Katja Tony FNPResults: 1Nega tive Date of Service: 03/19/23Follow Up: 1 Year From Orig inal Mammogram Procedure(s): MM tomosynthesis screening BI Accession Number(s): [id number] cc: Katja Tony COKE CRUSHER OPERATOR EXAMINATION: MM SCREENING DIGITAL BREAST TOMOSYNTHESIS, BILATERAL CLINICAL INFORMATION: Screening. Asymptomatic. COMPARISON: Mammography: This study is compared with prior exams dating back to 2017. TECHNIQUE: Digital breast tomosynthesis is performed in both the craniocaudal and mediolateral oblique views along with computer-aided detection (CAD). Synthesized 2D images are generated from the tomosynthesis. FINDINGS: The breasts are heterogeneously dense, which may obscure small masses (ACR BI-RADS breast composition Category c). There are no significant masses, abnormal calcifications, or other abnormalities. MM/MM tomosynthesis screening BI IMPRESSION: No mammographic evidence of malignancy. ASSESSMENT: BI-RADS BI-RADS 1 - Negative RECOMMENDATION: Routine annual mammography screening. 1 year F/U This examination should not preclude the clinical evaluation of a suspicious palpable abnormality. This patient's information was entered into a reminder system with a target due date for their next mammogram. Dictated By: Joana Garcia MD Signed By: <Electronically signed by Joana Garcia MD in OV> 04/06/23 1406 DD/ 1028 TD/TT: Flue Dust Laborer: [facility] COKE CRUSHER OPERATOR IMG BI PROCEDURES Final Resul t * HEPATITIS C AB W/REFL TO HCV RNA, QN, PCR (01/08/2020 10:50 AM EST) HEPATITIS C ANTIBODY NON-REACT BILLY NON-REACT BILLY [facility] INDEX 0.04 <1.00 [facility] Comment: ?? HCV antibody was non-reactive. There is no laboratory ?? evidence of HCV infection. ?? In most cases, no further action is required. However, if recent HCV exposure is suspected, a test for HCV RNA (test code 59013) is suggested. ?? For additional information please refer to http://education.[employer]faq/YDU73e8 (This link is being provided for informational/ educational purposes only.) ?? 01/08/2020 10:5 0 AM EST Jovita Ordonez MD HISTORICAL/NON ORDERABLE LABS Final Result [facility] [address] * Hm Colonoscopy (08/24/2015 9:01 AM EDT) Historical Provider HEALTH MAINTENANCE Final Result from Last 3 Months or Most Recently Relevant to Health Maintenance [place] [address] [place] [address] - [place] Care Teams Cuff Slitter Relationship Specialty Start Date End Date Katja Tony FNP [address] [place] [id number] PCP - General Family Medicine 11/30/20
--- OUTSIDE RECORDS SUMMARY | 2024-03-31 15:46 | XMS_ITS | Encounter Summary ---
Author Organization [employer] [facility] Address [address] [facility] 7t [place] [address] Care Team Providers Care Direct Casting Operator Name Role Phone Katja Tony Primary Care Provider [phone] Reason for Referral * Imaging (Routine) - Authorized Specialty Diagnoses / Procedures Referred By Contfreddy t Referred To Contact Radiology Diagnoses Osteopenia, unspecified location Procedures BD DEXA Axial Katja Tony FNP [address] [place] [address] Phone: tel: fax: [address] Phone: tel: fax: Referral ID Status Reason Start Date Expiration Date V isits Requested Visits Authorized [id number] Authorized 03/18/2024 03/18/2025 1 1 Reason for Visit * Reason Comments Follow-up Encounter Details Date Type Department Care Team (Late st Contact Info) Description 03/17/2024 2:30 PM EST Office Visit [facility] [address] [place], [place] [phone] Katja Tony FNP [address] [place], [place] [phone] Primary hypertension (Primary Dx); Osteopenia, unspecified location; Acute neck pain; Encounter for immunization Social History Tobacco Use Types Packs/Day Years [...] AM EDT documented as of this encounter Last Filed Vital Signs Vital Sign Reading Time Taken Comments Blood Pressure 136/80 03/17/2024 2:31 PM EST Pulse 74 03/17/2024 2:31 PM EST Temperature 36.1 ??C (96.9 ??F) 03/17/2024 2:31 PM ES T Respiratory Rate 18 03/17/2024 2:31 PM EST Oxygen Saturation - - Inhaled Oxygen Concentration - - Weight 63.2 kg (139 lb 6.4 oz) 03/17/2024 2:31 P M EST Height 157.5 cm (5' 2 ) 03/17/2024 2:31 PM EST Body Mass Index 25.5 03/17/2024 2:31 PM EST documented in this encounter Progress Notes * [facility] [address], [facility] - 03/17/2024 2:30 PM EST SUBJECTIVE: Shanelle Segura is a 74 y.o. year old female with HTN, osteopenia, chronic LBP and history of hyperthyroid (now resolved) who presents for blood pressure follow up . Denies recent illness, injury, or hospitalization. Acute Concerns: None. Doing well Interim Updates: Hyperthyroid-reestablished with [facility] endo. Restarted methimazole. Has follow up this week,. Need records. HTN- need new home BP kit. Social History Social History Narrative Tobacco Use: None ETOH: None Marijuana Use: None Other substance use: None Current living environment: Lives alone--senior housing. Daughter supports Sexually active: No Patient Active Problem List Diagnosis Healthcare maintenance Primary hypertension Hyperthyroidism Osteopenia Polyp of colon Vitamin D deficiency Mixed hyperlipidemia No past surgical history on file. No family history on file. Review of Systems Constitutional: Negative for fatigue, fever and unexpected weight change. Eyes: Negative for visual disturbance. Respiratory: Negative for apnea, chest tightness and shortness of breath. Cardiovascular: Negative for chest pain, palpitations and leg swelling. Neurological: Negative for dizziness, light-headedness and headaches. OBJECTIVE: Vitals: 03/17/24 1431 BP: 136/80 Pulse: 74 Resp: 18 Temp: 96.9 ??F (36.1 ??C) Physical Exam Constitutional: General: She is not in acute distress. Appearance: Normal appearance. HENT: Head: Normocephalic and atraumatic. Right Ear: External ear normal. Left Ear: External ear normal. Nose: Nose normal. Eyes: Conjunctiva/sclera: Conjunctivae normal. Cardiovascular: Rate and Rhythm: Normal rate and regular rhythm. Heart sounds: Normal heart sounds. Pulmonary: Effort: Pulmonary effort is normal. Breath sounds: Normal breath sounds. Skin: General: Skin is warm and dry. Neurological: General: No focal deficit present. Mental Status: She is alert and oriented to person, place, and time. Psychiatric: Mood and Affect: Mood normal. Behavior: Behavior normal. ASSESSMENT/PLAN 1. Primary hypertension (Primary) - Continue enalapril-hydrochlorothiazide 5/12.5 -Reviewed ED precautions to include chest pain, shortness of breath, severe headache, sudden visionchanges or BP >=180/>=120 mmHg. Contact HC if three or more BP readings >140/90. - Blood Pressure kit; Use as directed Dispense: 1 kit; Refill: 0 2. Osteopenia, unspecified location - Overdue for repeat DEXA - Continue daily vitamin D/calcium supplementation - Will reorder DEXA and follow up pending results - BD DEXA Axial; Future - BD DEXA Axial 4. Encounter for immunization - FLU VACCINE TRIVALENT HIGH DOSE 65 yrs + - Declines covid vaccine Follow Up: 6 months, PE Current Outpatient Medications on File Prior to Visit Medication Sig Dispense Refill Calcium Carb-Cholecalciferol 600-10 MG-MCG tablet TAKE 1 TABLET BY MOUTH TWICE DAILY. 180 tablet 1 calcium carbonate (Calcium 600) 600 MG tablet Take 1 tablet (600 mg) by mouth with breakfast and with evening meal. 60 tablet 11 cholecalciferol (Vitamin D3) 25 MCG (1000 UT) tablet Take 1 tablet (1,000 Units) by mouth Once per day. 30 tablet 11 Enalapril-hydroCHLOROthiazide 5-12.5 MG tablet TAKE 1 TABLET BY MOUTH EVERY MORNING 90 tablet 1 ibuprofen 400 MG tablet TAKE 1 TABLET BY MOUTH EVERY 4 TO 6 HOURS NEEDED 30 tablet 0 lidocaine (Lidoderm) 5 % patch Apply topically to affected areas. Leave on for up to 12 hours 30 patch 1 rosuvastatin (Crestor) 10 MG tablet TAKE 1 TABLET BY MOUTH EVERY MORNING 90 tablet 1 No current facility-administered medications on file prior to visit. Divehi Translation: Provided by [facility] staff member RAISA Diaz documented in this encounter Plan of Treatment Upcoming Encounters Date Type Department Care Team ([facility] st Contact Info) Description 05/19/2024 10:00 AM EDT Office Visit [facility] [address] [place] [address] [place] FNP [address] [place] [address] Scheduled Orders Name Type Priority Associated Diagnoses Orde r Schedule BD DEXA Axial Imaging Routine Osteopenia, unspecified location Expected: 03/18/2024, Expires: 03/18/2025 documented as of this encounter Visit Diagnoses Diagnosis Primary hypertension- Primary Unspecified essential hypertension Osteopenia, unspecified location Acute neck pain Encounter for immunization documented in this encounter Additional Health Concerns Assessment Noted Time PHQ-9 Depression Total Score: 0 09/10/19 24 9:47 AM EDT documented as of this encounter Care Teams Direct Casting Operator Relationship Specialty Start Date End Date [place] GISELE Hightower [address] [place] [address] PCP - General Family Medicine 11/30/20 documented as of this encounter
--- OUTSIDE RECORDS SUMMARY | 2024-03-31 15:46 | XMS_ITS | Encounter Summary ---
Author Organization [employer] [facility] Address [address] [place] [address] 7t [place] [address] Care Team Providers Care Dining Room Tables Set Up Attendant Name Role Phone [facility] Primary Care Provider [phone] Reason for Visit * Reason Comments Med Refill Encounter Details Date Type Department Care Team (Late st Contact Info) Description 05/24/2023 Refill [facility] [address] [place], [place] [phone] [facility] [address] [place], [place] [phone] Social History Tobacco Use Types Packs/Day Years [...] AM EDT Office Visit [facility] [address] [place] [address] [facility], [address] [place] [address] documented as of this encounter Visit Diagnoses Not on filedocumented in this encounter Additional Health Concerns Assessment Noted Time PHQ-9 Depression Total Score: 0 04/16/19 24 9:00 AM EST documented as of this encounter Care Teams Dining Room Tables Set Up Attendant Relationship Specialty Start Date End Date Katja Tony FNP [address] [place] [address] PCP - General Family Medicine 11/30/20 documented as of this encounter
--- OUTSIDE RECORDS SUMMARY | 2024-03-31 15:46 | XMS_ITS | Encounter Summary ---
Author Organization [employer] [facility] Address [address] [facility] 7t [place] [address] Care Team Providers Care Preflight Inspector Name Role Phone [facility] Primary Care Provider [phone] Reason for Visit * Reason Onset Date Comments Med Refill 05/22/2023 Encounter Details Date Type Department Care Team (Late st Contact Info) Description 05/22/2023 Telephone [facility] [address] [place], [place] [phone] [facility] [address] [place], [place] [phone] Med Refill Social History Tobacco Use Types Packs/Day Years [...] encounter Miscellaneous Notes * Telephone Encounter - Goldie Che LPN - 05/22/2023 9:02 AM EDT Medication was sent to [facility] #[id number] on 05/01/23 #90 with 1 refill. * Telephone Encounter - Timothy Perez - 05/22/2023 8:59 AM EDT TC from pt requesting medication refill. Medications needing refill : Enalapril-hydroCHLOROthiazide 5-12.5 MG tablet To be sent to: [id number] - [place], [place] - [address] documented in this encounter Plan of Treatment Upcoming Encounters Date Type Department Care Team (Late st Contact Info) Description 05/19/2024 10:00 AM EDT Office Visit [facility] [address] [place] [address] Katja Tony FNP [address] [place] [address] documented as of this encounter Visit Diagnoses Not on filedocumented in this encounter Additional Health Concerns Assessment Noted Time PHQ-9 Depression Total Score: 0 04/16/19 24 9:00 AM EST documented as of this encounter Care Teams Preflight Inspector Relationship Specialty Start Date End Date Katja Tony FNP [address] [place] [address] PCP - General Family Medicine 11/30/20 documented as of this encounter
== END 2024-03-31 10:53 | disposition home or self-care (01) ==
LOC: HO.MAMMO 10:52
PROVIDERS: PCP Registered Nurse; Visit Provider Registered Nurse
DX: Z12.31 Encounter for screening mammogram for malignant neoplasm of breast (principal)
CPT/HCPCS: 77063; 77067

== ENCOUNTER → 2024-03-31 11:15 | Outpatient (BNV) | payer OTHER, SELFPAY | PROVIDERS: PCP Registered Nurse; Visit Provider Internal Medicine | DX: Z12.31 Encounter for screening mammogram for malignant neoplasm of breast (principal) | CPT/HCPCS: 77063; 77067 ==

== ENCOUNTER 2024-04-17 08:52 | Outpatient (REF) | payer OTHER, SELFPAY ==
--- NOTE | ~2024-04-17 | MM_ITS ---
EXAMINATION: DXA BONE DENSITY AXIAL HISTORY: Estrogen deficiency TECHNIQUE: [employer] Dual energy absorptiometry (DEXA) of the lumbar spine, total left hip, and femoral neck was performed. COMPARISON: Comparison is made with the prior examination dated 06/02/2021. FINDINGS: The bone mineral density of the lumbar spine is 0.892 with a T-score of -2.4, and a Z-score of -0.5. This represents a BMD change of -1.5% compared to the prior exam. This is not statistically significant. The bone mineral density of the left total hip is 0.719 with a T-score of -2.3, and a Z-score of -0.5. This represents BMD change of -8.4% compared to the prior exam. This is statistically significant. The bone mineral density of the left femoral neck is 0.740 with a T-score of -2.1, and a Z-score of -0.2. This represents BMD change of -7.5% compared to the prior exam. FRACTURE RISK: The FRAX index suggests a ten year probability of major osteoporotic fracture of 9.7%, and of hip fracture 2.7%. MM/XR DEXA axial skeleton IMPRESSION: Based on bone mineral density, and according to World Health Organization (WHO) criteria, the diagnosis is consistent with osteopenia. All bone density values are in grams per centimeter squared (g/cm2). Statistically, 68% of repeat scans fall within 1 SD (+/- 0.010 g/cm2 for AP spine L1-L4) and 1 SD (+/- 0.012 g/cm2 for femur total) FRAX is a trademark of the [employer]'s [employer] for Metabolic Bone Disease, a World Health Organization (WHO) Collaborating Center. Electronically signed by: Westley Remy MD 04/17/2024 09:37 AM [facility]
--- OUTSIDE RECORDS SUMMARY | 2024-04-17 09:14 | XMS_ITS | Encounter Summary ---
Author Organization [employer] [facility] Address [address] [facility] [address]t [place] [address] Care Team Providers Care Quality Control Specialist Name Role Phone [facility] [employer] Primary Care Provider [phone] Encounter Details Date Type Department Care Team (Late st Contact Info) Description 06/13/2023 Orders Only [facility] [address] [place] [address] ProviderAura MD Social History Tobacco Use [...] Description 05/19/2024 10:00 AM EDT Office Visit [facility] [address] [place] [address] Katja Tony FNP [address] [place] [address] documented as of this encounter Procedures Procedure [...] documented as of this encounter Care Teams Quality Control Specialist Relationship Specialty Start Date End Date Katja Tony FNP [address] [place] [address] PCP - General Family Medicine 11/30/20 documented as of this encounter
--- OUTSIDE RECORDS SUMMARY | 2024-04-17 09:14 | XMS_ITS | Encounter Summary ---
Author Organization [employer] [facility] Address [address] [place] [address] 7t [place] [address] Care Team Providers Care Chip Silo Tender Name Role Phone [facility] Primary Care Provider [phone] Reason for Visit * Reason Comments Med Refill Encounter Details Date Type Department Care Team (Late st Contact Info) Description 05/10/2023 Refill [facility] [address] [place], [place] [phone] [facility] [address] [place], [place] [phone] Social History Tobacco Use Types Packs/Day Years [...] Description 05/19/2024 10:00 AM EDT Office Visit [facility] [address] [place] [address] [facility], [address] [place] [address] documented as of this encounter Visit Diagnoses Not on filedocumented in this encounter Additional Health Concerns Assessment Noted Time PHQ-9 Depression Total Score: 0 04/16/19 24 9:00 AM EST documented as of this encounter Care Teams Chip Silo Tender Relationship Specialty Start Date End Date Katja Tony FNP 230 [place] [address] PCP - General Family Medicine 11/30/20 documented as of this encounter
--- OUTSIDE RECORDS SUMMARY | 2024-04-17 09:15 | XMS_ITS | Encounter Summary ---
Author Organization [facility] Address [address] [facility] 7t [place] [address] Care Team Providers Care Supervisor Specialty Plant Name Role Phone [facility] Primary Care Provider [phone] Reason for Visit * Reason Onset Date Comments Med Refill 05/22/2023 Encounter Details Date Type Department Care Team (Late st Contact Info) Description 05/22/2023 Telephone [facility] 230 [place], [place] [phone] [facility] 230 [place], [place] [phone] Med Refill Social History Tobacco Use Types [...] 9:02 AM EDT Medication was sent to [facility] #[id number] on 05/01/23 #90 with 1 refill. * Telephone Encounter - Timothy Perez - 05/22/2023 8:59 AM EDT TC from pt requesting medication refill. Medications needing refill : Enalapril-hydroCHLOROthiazide 5-12.5 MG tablet To be sent to: [id number] - [place], [place] - [address] documented in this encounter Plan of Treatment Upcoming Encounters Date Type Department Care Team (Late st Contact Info) Description 05/19/2024 10:00 AM EDT Office Visit [facility] [address] [place] [address] Katja Tony FNP 230 [place] [address] documented as of this encounter Visit Diagnoses Not on filedocumented in this encounter Additional Health Concerns Assessment Noted Time PHQ-9 Depression Total Score: 0 04/16/19 24 9:00 AM EST documented as of this encounter Care Teams Supervisor Specialty Plant Relationship Specialty Start Date End Date Katja Tony FNP 230 [place] [address] PCP - General Family Medicine 11/30/20 documented as of this encounter
--- OUTSIDE RECORDS SUMMARY | 2024-04-17 09:15 | XMS_ITS | Clinical Summary ---
Author Organization [employer] Address [address] [facility] 7t [place] [address] Care Team Providers Care Bartender Helper Name Role Phone [facility] Primary Care Provider [phone] Allergies No known active allergies Medications lidocaine (Lidoderm) 5 % patchIndications: Acute neck pain,Muscle spasm Apply topically to affected areas. Leave on for up to 12 hours 30 patch 1 4 Active Calcium Carb-Cholecalcife rol 600-10 MG-MCG tablet TAKE 1 TABLET BY MOUTH TWICE DAILY. 180 tablet 1 4 Active calcium carbonate (Calcium 600) 600 MG tabletIndications :Osteopenia, unspecified location Take 1 tablet (600 mg) by mouth with breakfast and with evening meal. 60 tablet 11 4 07/20/19 25 Active cholecalciferol (Vitamin D3) 25 MCG (1000 UT) tabletIndications :Osteopenia, unspecified location Take 1 tablet (1,000 Units) by mouth Once per day. 30 tablet 11 4 Active rosuvastatin (Crestor) 10 MG tablet TAKE 1 TABLET BY MOUTH EVERY MORNING 90 tablet 1 4 Active Enalapril-hydroCH LOROthiazide 5-12.5 MG tablet TAKE 1 TABLET BY MOUTH EVERY MORNING 90 tablet 1 4 Active Blood Pressure kitIndications:Pr imary hypertension Use as directed 1 kit 5 Active ibuprofen 400 MG tabletIndications :Acute neck pain TAKE 1 TABLET BY MOUTH EVERY 4 TO 6 HOURS NEEDED 30 tablet 1 5 Active Active Problems Problem Noted Date Diagnosed Date [...] RSV Primary hypertension 04/26/2023 Overview (04/26/2023): Enalapril-hydrochlorothiazide 5/.5 - Aerobic exercise to reduce BP. Initial [...] Encounters Date Type Department Care Team Description 03/31/2024 Orders Only [facility] [address] [place] [address] HarlingenKatja FNP 03/17/2024 2:30 PM EST Office Visit [facility] [address] [place] [address] HarlingenKatja [facility] Primary hypertension (Primary Dx); Osteopenia, unspecified location; [...] Description 05/19/2024 10:00 AM EDT Office Visit [facility] [address] [place] [address] [facility] 230 [place] [address] Health Maintenance Due Date Last Done Comments CT Colonography 1950 FIT DNA/Cologuard 1950 FIT 1950 FOBT 1950 Sigmoidoscopy 1950 COVID-19 Vaccine ( season) 2023 03/28/2021, 06/01/2020, 05/04/2020 Alcohol/Substance Use Screening 06/10/2024 06/11/2023 Depression Screening 09/09/2024 09/10/2023, 09/10/19 SDOH Screening 09/09/2024 09/10/2023 Tobacco Screening 03/18/2025 03/18/2024 Mammogram 03/31/2025 03/31/2024, 03/05, 03/13/2022, Additional history exists Colonoscopy 08/23/2025 08/24/2015 Colorectal Cancer Screening 08/23/2025 RSV Patients and Patients Aged 60 years or older (1 - 1-dose 75+ series) 2026 Lipid Panel 04/16/2028 04/16/2023, 12/03, 08/10/2021, Additional history exists DTaP/Tdap/Td Vaccines (2 - Td or Tdap) 04/16/2033 04/16/2023, 09/18/2014 Hepatitis B Vaccines Completed 07/08/2009, 11/03/2008, 09/29/2008 Hepatitis C Screening Completed 01/08/2020 Pneumococcal Vaccine: 50+ Years Completed 12/20/2021, 06/04/2018 Zoster Vaccines Completed 09/20/2023, 11/2021, 09/18/2014 Influenza Vaccine Completed 03/17/2024, , [...] Procedure Name Priority Date/Time Associated Diagnosis Comments BI MAMMOGRAM SCREENING TOMOSYNTHESIS BILATERAL Routine 03/31/2024 11:00 AM EST LIPID PANEL, STANDARD Routine 04/16/2023 9:55 AM EST Primary hypertension ZZZ HISTORICAL HEPATITIS C AB W/REFL TO HCV RNA, QN, PCR Routine 01/08/2020 10:50 AM EST HM COLONOSCOPY Routine 08/24/2015 9:01 AM EDT from Last 3 Months or Most Recently Relevant to Health Maintenance Results * BI Mammogram Screening Tomosynthesis Bilateral (03/31/2024 11:00 AM EST) Anatomical Region Laterality Modality Breast Bilateral Mammography 03/31/2024 11:0 0 AM EST Narrative 04/08/2024 4:42 PM EST ? [facility] ? [address] ?[place] [address] ? Mammography Report ? Signed ? Patient: Segura,Shanelle ?MR#: [id number] ?? [id number] ? : 1950 ?Acct:[id number] ? Age/Sex: 74 / F ?ADM Date: 03/31/ ? Loc: HO.MAMMO ? Attending Dr: Katja Harlingen PROTOTYPE TECHNICIAN ? Ordering Physician: Harlingen,Katja PROTOTYPE TECHNICIAN ?Results: 1Nega ?? tive ? Date of Service: 03/31/ ?Follow Up: 1 Year From Orig ?? inal Mammogram ? Procedure(s): MM tomosynthesis screening BI ?? Accession Number(s): [id number] ? cc: Cecily,Katja PROTOTYPE TECHNICIAN ? EXAMINATION: ?? MM SCREENING DIGITAL BREAST TOMOSYNTHESIS, BILATERAL ? CLINICAL INFORMATION: ? Screening. Asymptomatic. ? COMPARISON: ?? Mammography: Comparison is made with available priors ? TECHNIQUE: ?? Digital breast mammography with tomosynthesis is performed in both the ?? craniocaudal and mediolateral oblique views along with computer-aided ?? detection (CAD). ? FINDINGS: ?? The breasts are heterogeneously [...] due date for their next mammogram. ? Electronically signed by: ??Jasmine Chong DO ??04/08/2024 04:39 PM EST ? Dictated By: ?Jasmine Chong DO ? Signed By: ?<Electronically signed by Jasmine Chong, DO in OV> ? 04/08/24 1639 ? DD/ 1100 ? TD/TT: 03/31/24 1121 ? Stretch Press Operator: ? Procedure Note Matthew Zavala - 04/08/2024 Martin [facility] [address] [place] [address] Mammography Report Signed Patient: Sharan Segura#: [id number] : 2Acct:[id number] Age/Sex: 74 / FADM Date: 03/31/24 Loc: HO.MAMMO Attending Dr: Katja Tony PROTOTYPE TECHNICIAN Ordering Physician: Katja Tony FNPResults: 1Nega tive Date of Service: 03/31/24Follow Up: 1 Year From Orig inal Mammogram Procedure(s): MM tomosynthesis screening BI Accession Number(s): [id number] cc: Katja Tony PROTOTYPE TECHNICIAN EXAMINATION: MM SCREENING DIGITAL BREAST TOMOSYNTHESIS, BILATERAL CLINICAL INFORMATION: Screening. Asymptomatic. COMPARISON: Mammography: Comparison is made with available priors TECHNIQUE: Digital breast mammography with tomosynthesis is performed in both the craniocaudal and mediolateral oblique views along with computer-aided detection (CAD). FINDINGS: The breasts are heterogeneously dense, which [...] target due date for their next mammogram. Electronically signed by: Jasmine Chong DO 04/08/2024 04:39 PM EST RP Dictated By: Jasmine Chong DO Signed By: <Electronically signed by Jasmine Chong DO in OV> 04/08/24 1639 DD/ 1100 TD/TT: 03/31/24 1121 Stretch Press Operator: [facility] PROTOTYPE TECHNICIAN IMG BI PROCEDURES Final Resul t * Lipid Panel, Standard (04/16/2023 9:55 AM EST) Triglycerides 81 <150 mg/dL [facility] Comment:Desirable Triglyceri de: less than 150 mg/dLBorderline High Triglyceride 150-199 mg/dLHigh Triglyceride: 200-499 mg/dLVery High Triglyceride: greater than or equal to 5OO mg/dL Cholesterol 130 <200 mg/dL [facility] Comment:Desirable Cholestero l: less than 200 mg/dLBorderline High Cholesterol: 200-239 mg/dLHigh Cholesterol: greater than 239 mg/dL LDL Cholesterol Calculated 68 <100 mg/dL [facility] Comment:Desirable LDL: less than 100 mg/dLNear Optimal/Above Optimal LDL: 110- 129 mg/dLBorderline High LDL: 130-159 mg/dLHigh LDL: 160-189 mg/dLVery High LDL: greater than or equal to 190 mg/dL HDL Cholesterol 46 >40 mg/dL [facility] Comment:Desirable HDL: great er than 40 mg/dL Note: This HDL assay may give artificially low results in patients with liver disease. Blood Venous blood specimen / Unknown 04/16/2023 9:55 AM EST 04/16/2023 11:24 AM EST [facility] PROTOTYPE TECHNICIAN LAB BLOOD ORDERABLES Final Re sult [facility] [address] [place] [address] [phone] * HEPATITIS C AB W/REFL TO HCV RNA, QN, PCR (01/08/2020 10:50 AM EST) HEPATITIS C ANTIBODY NON-REACT BILLY NON-REACT BILLY [facility] INDEX 0.04 <1.00 [facility] Comment: ?? HCV antibody was non-reactive. There is no laboratory ?? evidence of HCV infection. ?? In most cases, no further action is required. However, if recent HCV exposure is suspected, a test for HCV RNA (test code 42739) is suggested. ?? For additional information please refer to http://education.Let's Jock/faq/NEH78t5 (This link is being provided for informational/ educational purposes only.) ?? 01/08/2020 10:5 0 AM EST Jovita Ordonez MD HISTORICAL/NON ORDERABLE LABS Final Result Performing Organization Address City/[facility]/ZIP Co de Phone Number [facility] [address] [place] [address], * Hm Colonoscopy (08/24/2015 9:01 AM EDT) Historical Provider HEALTH MAINTENANCE Final Result from Last 3 Months or Most Recently Relevant to Health Maintenance Insurance [place] [address] - [place] Care Teams Bartender Helper Relationship Specialty Start Date End Date Katja Tony FNP [address] [place] [address] PCP - General Family Medicine 11/30/20
--- OUTSIDE RECORDS SUMMARY | 2024-04-17 09:15 | XMS_ITS | Data Portability ---
Author Organization [employer] Address [address] [place] [id number] Care Team Providers Care Camper Assembler Name Role Phone [facility] Referring Provider [facility] Referring Provider Assessment No assessment recorded. Plan of Treatment Reminders Order Date Submit Date Provider Last Modified By Organization Details Last Modified Time Details Appointments None recorded. Lab None recorded. Referral None recorded. Procedures None recorded. Surgeries None recorded. Imaging None recorded. Medication Orders azithromyci n 250 mg tablet 2021 [id number], [address] [place], [place], [id number], 2 14:30:31 amoxicillin 875 mg-potassiu m clavulanate 125 mg tablet 2021 022 [facility][id number], [address] [place], [place], [phone], 2 14:30:32 Patient TargetsNo targets recorded. Patient [...] 2462 Татьяна Salmon MD Main - [facility] [address] [place] [phone] 09/02/2021 14:12:18 11/02/2021 11:30:30 Dyspnea [id number] R06.00 dyspnea x1 week. R side w/ [...] Dangelo Member ID Guarantor Name 09/02/2021 1 [facility] - DOS PRIOR TO 2022 - DUAL ELIGIBLE (MEDICARE REPLACEMENT/AD VANTAGE - HMO) Shanelle Segura [id number] Shanelle Segura Notes Date Note Type Note [...] ................... ................... ................... ................... ................... ................... ........ Chief Librarian Extension Department Note: Pt states she was at the [...] ................... ........ Disposition: Fulfilled Татьяна Salmon MD [address] [place] [address],[address] [facility], [place], [phone], [employer] 09/02/2021 17:51:11 OBGyn Episode No OBEpisode recorded.
--- OUTSIDE RECORDS SUMMARY | 2024-04-17 09:15 | XMS_ITS | Encounter Summary ---
Author Organization [employer] Address [address] [facility] 7t [place] [address] Care Team Providers Care Vacuum Plastic Forming Machine Operator Name Role Phone [facility] Primary Care Provider [phone] Encounter Details Date Type Department Care Team ([facility] st Contact Info) Description 03/31/2024 Orders Only [facility] [address] [place], [place] [phone] [facility] 230 [place], [place] [phone] Social History Tobacco Use Types Packs/Day Years [...] Upcoming Encounters Date Type Department Care Team ([facility] st Contact Info) Description 05/19/2024 10:00 AM EDT Office Visit [facility] [address] [place] [address] [facility] [address] [place] [address] documented as of this encounter Procedures Procedure Name Priority Date/Time Associated Diagnosis Comments BI MAMMOGRAM SCREENING TOMOSYNTHESIS BILATERAL Routine 03/31/2024 11:00 AM EST documented in this encounter Results * BI Mammogram Screening Tomosynthesis Bilateral (03/31/2024 11:00 AM EST) Anatomical Region Laterality Modality Breast Bilateral Mammography 03/31/2024 11:0 0 AM EST Narrative 04/08/2024 4:42 PM EST ? [facility] ? [address] ?[place] [address] ? Mammography Report ? Signed ? Patient: Segura,Shanelle ?MR#: [id number] ?? [id number] ? : 1950 ?Acct:[id number] ? Age/Sex: 74 / F ?ADM Date: /27/25 ? Loc: HO.MAMMO ? Attending Dr: Katja Tony INSOLE AND OUTSOLE PREPARER ? Ordering Physician: Katja Tony INSOLE AND OUTSOLE PREPARER ?Results: 1Nega ?? tive ? Date of Service: 03/31/24 ?Follow Up: 1 Year From Orig ?? inal Mammogram ? Procedure(s): MM tomosynthesis screening BI ?? Accession Number(s): [id number] ? cc: Katja Tony INSOLE AND OUTSOLE PREPARER ? EXAMINATION: ?? MM SCREENING DIGITAL BREAST [...] ??Jasmine Chong DO ??04/08/2024 04:39 PM EST ?? RP ? Dictated By: ?Jasmine Chong DO ? Signed By: ?<Electronically signed by Jasmine Chong, DO in OV> ? 04/08/24 1639 ? DD/ 1100 ? TD/TT: 03/31/24 1121 ? Walking Dragline Operator: ? Procedure Note Donotuseinterpreter, Image - 04/08/[address] [facility] [address] [place] [address] Mammography Report Signed Patient: Sharan Segura#: [id number] : 2Acct:[id number] Age/Sex: 74 / FADM Date: 03/31/24 Loc: JEN Attending Dr: Katja Tony INSOLE AND OUTSOLE PREPARER Ordering Physician: Katja Tony FNPResults: 1Nega tive Date of Service: 03/31/24Follow Up: 1 Year From Orig inal Mammogram Procedure(s): MM tomosynthesis screening BI Accession Number(s): [id number] cc: Katja Tony INSOLE AND OUTSOLE PREPARER EXAMINATION: MM SCREENING DIGITAL BREAST TOMOSYNTHESIS, BILATERAL [...] 04/08/24 1639 DD/ 1100 TD/TT: 03/31/24 1121 Walking Dragline Operator: [facility] GISELE IMG BI PROCEDURES Final Resul t documented in this encounter Visit Diagnoses Not on filedocumented in this encounter Additional Health Concerns Assessment Noted Time PHQ-9 Depression Total Score: 0 09/10/19 24 9:47 AM EDT documented as of this encounter Care Teams Vacuum Plastic Forming Machine Operator Relationship Specialty Start Date End Date Katja Tony FNP [address] [place] [address] PCP - General Family Medicine 11/30/20 documented as of this encounter
--- OUTSIDE RECORDS SUMMARY | 2024-04-17 09:15 | XMS_ITS | Encounter Summary ---
Author Organization [employer] [facility] Address [address] [place] [address] 7t [place] [address] Care Team Providers Care Integrated Campaign Manager Name Role Phone [facility] Primary Care Provider [phone] Reason for Visit * Reason Comments Med Refill Encounter Details Date Type Department Care Team (Late st Contact Info) Description 05/24/2023 Refill [facility] 230 [place], [place] [phone] [facility] 230 [place], [place] [phone] Social History Tobacco Use Types Packs/Day Years [...] 10:00 AM EDT Office Visit [facility] [address] [place] [address] [facility], [address] [place] [address] documented as of this encounter Visit Diagnoses Not on filedocumented in this encounter Additional Health Concerns Assessment Noted Time PHQ-9 Depression Total Score: 0 04/16/19 24 9:00 AM EST documented as of this encounter Care Teams Integrated Campaign Manager Relationship Specialty Start Date End Date Katja Tony FNP [address] [place] [address] PCP - General Family Medicine 11/30/20 documented as of this encounter
--- OUTSIDE RECORDS SUMMARY | 2024-04-17 09:15 | XMS_ITS | Encounter Summary ---
Author Organization [employer] [facility] Address [address] [facility] 7t [place] [address] Care Team Providers Care Cushion Maker Name Role Phone [facility] Primary Care Provider [phone] Reason for Visit * Reason Onset Date Comments Referral 07/23/2023 Encounter Details Date Type Department Care Team ([facility] st Contact Info) Description 07/23/2023 Telephone [facility] [address] [place], [place] [phone] [facility] 230 [place], [place] [phone] Referral Social History Tobacco Use Types Packs/Day [...] spasm And sent to [facility] in [place] * Telephone Encounter - Riaz Zaman - [...] If any questions please contact pt at [phone]. [facility] fax: [phone]. documented in this encounter Plan of Treatment Upcoming Encounters Date Type Department Care Team (Late st Contact Info) Description 05/19/2024 10:00 AM EDT Office Visit [facility] [address] [place] [address] Katja Tony FNP [address] [place] [address] documented as of this encounter Visit Diagnoses Not on filedocumented in this encounter Additional Health Concerns Assessment Noted Time PHQ-9 Depression Total Score: 1 06/11/19 24 10:23 AM EDT documented as of this encounter Care Teams Cushion Maker Relationship Specialty Start Date End Date Katja Tony FNP [address] [place] [address] PCP - General Family Medicine 11/30/20 documented as of this encounter
== END 2024-04-17 08:53 | disposition home or self-care (01) ==
LOC: HO.MAMMO 08:52
PROVIDERS: PCP Registered Nurse; Visit Provider Registered Nurse
DX: Z13.820 Encounter for screening for osteoporosis (principal); Z78.0 Asymptomatic menopausal state; M85.80 Other specified disorders of bone density and structure, unspecified site
CPT/HCPCS: 77080

== ENCOUNTER → 2024-04-17 09:15 | Outpatient (BNV) | payer OTHER, SELFPAY | PROVIDERS: PCP Registered Nurse; Visit Provider Radiology Diagnostic Radiology | DX: E28.39 Other primary ovarian failure (principal) | CPT/HCPCS: 77080 ==

== ENCOUNTER 2024-05-07 09:14 | Outpatient (REF) | payer OTHER, SELFPAY ==
--- OUTSIDE RECORDS SUMMARY | 2024-05-07 10:12 | XMS_ITS | Encounter Summary ---
Author Organization [facility] [facility] Address [address] [place] [address] [address] [place] [address] Care Team Providers Care Drop Man Name Role Phone [facility] Primary Care Provider [phone] Reason for Visit * Reason Comments Med Refill Encounter Details Date Type Department Care Team (Late st Contact Info) Description 05/10/2023 Refill [facility] 230 [place], [place] [phone] [facility] 230 [place], [place] [phone] Social History Tobacco Use Types Packs/Day Years [...] Description 05/19/2024 10:00 AM EDT Office Visit [facility] [address] [place] [phone] [facility], [address] [place] [address] documented as of this encounter Visit Diagnoses Not on filedocumented in this encounter Additional Health Concerns Assessment Noted Time PHQ-9 Depression Total Score: 0 04/16/19 24 9:00 AM EST documented as of this encounter Care Teams Drop Man Relationship Specialty Start Date End Date Katja Tony FNP [address] [place] [address] PCP - General Family Medicine 11/30/20 documented as of this encounter
--- OUTSIDE RECORDS SUMMARY | 2024-05-07 10:12 | XMS_ITS | Encounter Summary ---
Author Organization [employer] [facility] Address [address] [place] [address] 7 [place] [address] Care Team Providers Care Tie Mill Operator Name Role Phone [facility] Primary Care Provider [phone] Reason for Visit * Reason Comments Med Refill Encounter Details Date Type Department Care Team (Late st Contact Info) Description 05/24/2023 Refill [facility] [address] [place], [place] [phone] [facility] [address] [place], [place] [phone] Social History Tobacco Use Types Packs/Day Years [...] Description 05/19/2024 10:00 AM EDT Office Visit [facility] [address] [place] [address] [facility], [address] [place] [address] documented as of this encounter Visit Diagnoses Not on filedocumented in this encounter Additional Health Concerns Assessment Noted Time PHQ-9 Depression Total Score: 0 04/16/19 24 9:00 AM EST documented as of this encounter Care Teams Tie Mill Operator Relationship Specialty Start Date End Date Katja Tony FNP [address] [place] [address] PCP - General Family Medicine 11/30/20 documented as of this encounter
--- OUTSIDE RECORDS SUMMARY | 2024-05-07 10:12 | XMS_ITS | Encounter Summary ---
Author Organization [employer] [facility] Address [address] [facility] 7t [place] [address] Care Team Providers Care Loan Secretary Name Role Phone [facility] BUTTON INSPECTOR Primary Care Provider [phone] Encounter Details Date Type Department Care Team (Late st Contact Info) Description 06/13/2023 Orders Only [facility] [address] [place] [address] ProviderAura MD Social History Tobacco Use [...] Description 05/19/2024 10:00 AM EDT Office Visit [facility] [address] [place] [address] Katja Tony FNP [address] [place] [address] documented as of this encounter Procedures Procedure [...] documented as of this encounter Care Teams Loan Secretary Relationship Specialty Start Date End Date Katja Tony FNP [address] [place] [address] PCP - General Family Medicine 11/30/20 documented as of this encounter
--- OUTSIDE RECORDS SUMMARY | 2024-05-07 10:12 | XMS_ITS | Encounter Summary ---
Author Organization [employer] [facility] Address [address] [facility] 7t [place] [address] Care Team Providers Care Associate Professor Of Psychology Name Role Phone [facility] Primary Care Provider [phone] Reason for Visit * Reason Onset Date Comments Med Refill 05/22/2023 Encounter Details Date Type Department Care Team (Late st Contact Info) Description 05/22/2023 Telephone [facility] MEDICINE [address] [place], [place] [phone] [facility] [address] [place], [place] [phone] Med Refill Social History Tobacco Use Types [...] 9:02 AM EDT Medication was sent to [facility] #[id number] on 05/01/23 #90 with 1 refill. * Telephone Encounter - Timothy Perez - 05/22/2023 8:59 AM EDT TC from pt requesting medication refill. Medications needing refill : Enalapril-hydroCHLOROthiazide 5-12.5 MG tablet To be sent to: [id number] - [place], [place] - [address] documented in this encounter Plan of Treatment Upcoming Encounters Date Type Department Care Team (Late st Contact Info) Description 05/19/2024 10:00 AM EDT Office Visit [facility] MEDICINE [address] [place] [address] Katja Tony FNP [address] [place] [address] documented as of this encounter Visit Diagnoses Not on filedocumented in this encounter Additional Health Concerns Assessment Noted Time PHQ-9 Depression Total Score: 0 04/16/19 24 9:00 AM EST documented as of this encounter Care Teams Associate Professor Of Psychology Relationship Specialty Start Date End Date Katja Tony FNP [address] [place] [address] PCP - General Family Medicine 11/30/20 documented as of this encounter
--- OUTSIDE RECORDS SUMMARY | 2024-05-07 10:12 | XMS_ITS | Encounter Summary ---
Author Organization [employer] Address [address] 7t [place] [address] Care Team Providers Care Long Term Care Phlebotomist Name Role Phone [facility] Primary Care Provider [phone] Encounter Details Date Type Department Care Team (Late st Contact Info) Description 05/05/2024 Orders Only [facility] [address] [place], [place] [phone] [facility] 230 [place], [place] [phone] Osteopenia after menopause (Primary Dx) Social History Tobacco Use Types Packs/Day Years [...] Description 05/19/2024 10:00 AM EDT Office Visit [facility] [address] [place] [address] [facility] [address] [place] [address] Scheduled Orders Name Type Priority Associated Diagnoses Orde r Schedule Vitamin D, 25-Hydroxy, Total, Immunoassay Lab Routine Osteopenia after menopause Expected: 05/05/2024 (Approximate), Expires: 05/05/2025 Comprehensive Metabolic Panel Lab Routine Osteopenia after menopause Expected: 05/05/2024 (Approximate), Expires: 05/05/2025 CBC auto differential Lab Routine Osteopenia after menopause Expected: 05/05/2024 (Approximate), Expires: 05/05/2025 TSH W/Reflex to FT4 Lab Routine Osteopenia after menopause Expected: 05/05/2024 (Approximate), Expires: 05/05/2025 documented as of this encounter Visit Diagnoses Diagnosis Osteopenia after menopause- Primary documented in this encounter Additional Health Concerns Assessment Noted Time PHQ-9 Depression Total Score: 0 09/10/19 24 9:47 AM EDT documented as of this encounter Care Teams Long Term Care Phlebotomist Relationship Specialty Start Date End Date Cecily GISELE Hightower [address] [place] [address] PCP - General Family Medicine 11/30/20 documented as of this encounter
--- OUTSIDE RECORDS SUMMARY | 2024-05-07 10:13 | XMS_ITS | Encounter Summary ---
Author Organization [employer] Address [address] [facility] 7t [place] [address] Care Team Providers Care Marketing Services Specialist Name Role Phone [facility] Primary Care Provider [phone] Reason for Visit * Reason Onset Date Comments Prior Authorization 04/28/2024 Encounter Details Date Type Department Care Team (Late st Contact Info) Description 04/28/2024 Telephone [facility] [address] [place], [place] [phone] [facility] 230 [place], [place] [phone] Prior Authorization Social History Tobacco Use Types Packs/Day Years [...] encounter Miscellaneous Notes * Telephone Encounter - Caroline Narvaez - 04/28/2024 9:36 AM EST Tc from pt daughter states PA needed for rosuvastatin (Crestor) 10 MG tablet. documented in this encounter Plan of Treatment Upcoming Encounters Date Type Department Care Team (Late st Contact Info) Description 05/19/2024 10:00 AM EDT Office Visit [facility] [address] [place] [address] Katja Tony FNP [address] [place] [address] documented as of this encounter Visit Diagnoses Not on filedocumented in this encounter Additional Health Concerns Assessment Noted Time PHQ-9 Depression Total Score: 0 09/10/19 9:47 AM EDT documented as of this encounter Care Teams Marketing Services Specialist Relationship Specialty Start Date End Date Katja Tony FNP [address] [place] [address] PCP - General Family Medicine 11/30/20 documented as of this encounter
--- OUTSIDE RECORDS SUMMARY | 2024-05-07 10:13 | XMS_ITS | Encounter Summary ---
Author Organization [employer] Address [address] [facility] 7t [place] [address] Care Team Providers Care Jet Wiper Name Role Phone [facility] Primary Care Provider [phone] Reason for Visit * Reason Onset Date Comments Results 05/01/2024 Encounter Details Date Type Department Care Team ([facility] st Contact Info) Description 05/01/2024 Refill [facility] MED[facility]INE 230 [place], [place] [phone] [place] 230 [place], [place] [phone] Social History Tobacco Use Types Packs/Day Years [...] encounter Miscellaneous Notes * Telephone Encounter - Tena Rg RN - 05/06/2024 9:50 AM EST Received call from patient's daughter Cherelle (Ok per registration form). Advised that the patient's bone density screening showed a decline in the strength of her bones. Advised that [place] PCP will discuss treatment at her upcoming appt on 05/19/2024 at 10 AM. Also advised that additional labs were ordered non-fasting to be completed prior to upcoming visit. All questions answered. Patient's daughterverbalizes understanding and agreement with plan of care at this time. ----- Message ----- From: [facility] ErGISELE Sent: 05/05/2024 5:18 PM EST To: [facility] Red Team Nurses Please advise patient that bone density screening shows decline in the strength of her bones. We will discuss treatment at her upcoming visit however in anticipation of this please have her complete some initial labs which I will send in. Thank you! Nonfasting okay. documented in this encounter Plan of Treatment Upcoming Encounters Date Type Department Care Team (Late st Contact Info) Description 05/19/2024 10:00 AM EDT Office Visit [facility] MEDICINE [address] [place] [address] Katja Tony FNP [address] [place] [address] documented as of this encounter Visit Diagnoses Not on filedocumented in this encounter Additional Health Concerns Assessment Noted Time PHQ-9 Depression Total Score: 0 09/10/19 24 9:47 AM EDT documented as of this encounter Care Teams Jet Wiper Relationship Specialty Start Date End Date Katja Tony FNP [address] [place] [address] PCP - General Family Medicine 11/30/20 documented as of this encounter
--- OUTSIDE RECORDS SUMMARY | 2024-05-07 10:13 | XMS_ITS | Data Portability ---
Author Organization [employer] Address [address] [place] [phone] Care Team Providers Care Stationary Fireman Name Role Phone [facility] Referring Provider [facility] Referring Provider Assessment No assessment recorded. Plan of Treatment Reminders Order Date Submit Date Provider Last Modified By Organization Details Last Modified Time Details Appointments None recorded. Lab None recorded. Referral None recorded. Procedures None recorded. Surgeries None recorded. Imaging None recorded. Medication Orders azithromyci n 250 mg tablet 2021 [id number], [address] [place], [place], [id number], 2 14:30:31 amoxicillin 875 mg-potassiu m clavulanate 125 mg tablet 2021 022 [facility] #[id number], [address] [place], [place], [id number], 2 14:30:32 Patient TargetsNo targets recorded. Patient [...] 2462 Татьяна Salmon MD Main - [facility] [address] [place] [phone] 09/02/2021 14:12:18 11/02/2021 11:30:30 Dyspnea [id number] R06.00 dyspnea x1 week. R side w/ [...] Dangelo Member ID Guarantor Name 09/02/2021 1 [facility] - DOS PRIOR TO 2022 - DUAL ELIGIBLE (MEDICARE REPLACEMENT/AD VANTAGE - HMO) Shanelle Segura [id number] Shanelle Segura Notes Date Note Type Note [...] ................... ................... ................... ................... ................... ................... ........ Marketing Technology Coordinator Note: Pt states she was at the [...] ................... ........ Disposition: Fulfilled Татьяна Salmon MD [address] [place] [address],[address] [facility], [place], [phone], [email or web address] 09/02/2021 17:51:11 OBGyn Episode No OBEpisode recorded.
--- OUTSIDE RECORDS SUMMARY | 2024-05-07 10:13 | XMS_ITS | Encounter Summary ---
Author Organization [employer] [facility] Address [address] [facility] 7t [place] [address] Care Team Providers Care Fiberglass Luggage Molder Name Role Phone [facility] Primary Care Provider [phone] Reason for Visit * Reason Onset Date Comments Referral 07/23/2023 Encounter Details Date Type Department Care Team ([facility] st Contact Info) Description 07/23/2023 Telephone [facility] MEDICINE [address] [place], [place] [phone] [facility] 230 [place], [place] [phone] Referral Social History Tobacco Use Types Packs/Day [...] spasm And sent to [facility] in [place] * Telephone Encounter - Riaz Zaman - [...] If any questions please contact pt at [phone]. [facility] fax: [phone]. documented in this encounter Plan of Treatment Upcoming Encounters Date Type Department Care Team (Late st Contact Info) Description 05/19/2024 10:00 AM EDT Office Visit [facility] MEDICINE [address] [place] [address] Katja Tony FNP 230 [place] [address] documented as of this encounter Visit Diagnoses Not on filedocumented in this encounter Additional Health Concerns Assessment Noted Time PHQ-9 Depression Total Score: 1 06/11/19 24 10:23 AM EDT documented as of this encounter Care Teams Fiberglass Luggage Molder Relationship Specialty Start Date End Date Katja Tony FNP [address] [place] [address] PCP - General Family Medicine 11/30/20 documented as of this encounter
--- OUTSIDE RECORDS SUMMARY | 2024-05-07 10:13 | XMS_ITS | Clinical Summary ---
Author Organization [employer] Address [address] [facility] [address] [place] [address] Care Team Providers Care Component Assembler Supervisor Name Role Phone [facility] Primary Care Provider [phone] Allergies No known active allergies Medications lidocaine (Lidoderm) 5 % patchIndications :Acute neck pain,Muscle spasm Apply topically to affected areas. Leave on for up to 12 hours 30 patch 1 06/11/19 24 Active Calcium Carb-Cholecalcif ford 600-10 MG-MCG tablet TAKE 1 TABLET BY MOUTH TWICE DAILY. 180 tablet 1 07/06/19 24 Active calcium carbonate (Calcium 600) 600 MG tabletIndication s:Osteopenia, unspecified location Take 1 tablet (600 mg) by mouth with breakfast and with evening meal. 60 tablet 07/20/19 24 025 Active cholecalciferol (Vitamin D3) 25 MCG (1000 UT) tabletIndication s:Osteopenia, unspecified location Take 1 tablet (1,000 Units) by mouth Once per day. 30 tablet 11 07/20/19 24 Active Enalapril-hydroC HLOROthiazide 5-12.5 MG tablet TAKE 1 TABLET BY MOUTH EVERY MORNING 90 tablet 1 12/28/19 24 Active Blood Pressure kitIndications:P rimary hypertension Use as directed 1 kit 03/17/19 25 Active ibuprofen 400 MG tabletIndication s:Acute neck pain TAKE 1 TABLET BY MOUTH EVERY 4 TO 6 HOURS NEEDED 30 tablet 1 03/17/19 25 Active rosuvastatin (Crestor) 10 MG tablet TAKE 1 TABLET BY MOUTH EVERY MORNING 90 tablet 1 04/28/19 25 Active rosuvastatin (Crestor) 10 MG tablet TAKE 1 TABLET BY MOUTH EVERY MORNING 90 tablet 1 11/07/19 24 025 Discontinued Active Problems Problem Noted Date Diagnosed Date [...] Encounters Date Type Department Care Team Description 05/05/2024 Orders Only [facility] [address] [place] [address] Katja Tony FNP Osteopenia after menopause (Primary Dx) 05/01/2024 Telephone [facility] [address] [place] [address] Katja Tony FNP Plan of Care 05/01/2024 Refill [facility] [address] [place] [address] CecilyKatja FNP 04/28/2024 Telephone [facility] [place] [address] Cecily Katja [facility] Prior Authorization 04/28/2024 Refill [facility] [place] [address] Katja TonyTRUP 03/31/2024 Orders Only [facility] [place] [address] Cecily TRU HightowerP 03/17/2024 2:30 PM EST Office Visit [facility] [place] [address] Cecily, Katja [facility] Primary hypertension (Primary Dx); Osteopenia, unspecified location; [...] Office Visit [facility] [address] [place] [address] Cecily, Katja, TREE GIRDLER [address] [place] [address] Health Maintenance Due Date Last Done Comments [...] Completed 12/20/2021, 06/04/2018 Zoster Vaccines Completed 09/20/2023, 2021, 09/18/2014 Influenza Vaccine Completed 03/17/2024, , 12/20/2021 [...] Procedure Name Priority Date/Time Associated Diagnosis Comments BD DEXA AXIAL Routine 04/17/2024 9:05 AM EST Osteopenia, unspecified location BI MAMMOGRAM SCREENING TOMOSYNTHESIS BILATERAL Routine 03/31/2024 11:00 AM EST LIPID PANEL, STANDARD Routine 04/16/2023 9:55 AM EST Primary hypertension ZZZ HISTORICAL HEPATITIS C AB W/REFL TO HCV RNA, QN, PCR Routine 01/08/2020 10:50 AM EST HM COLONOSCOPY Routine 08/24/2015 9:01 AM EDT from Last 3 Months or Most Recently Relevant to Health Maintenance Results * BD DEXA Axial (04/17/2024 9:05 AM EST) Anatomical Region Laterality Modality Body Radiographic May ging 04/17/2024 9:05 AM EST Narrative 04/17/2024 9:40 AM EST ? [facility] [place] ? [address] ?[place] [address] ? Mammography Report ? Signed ? Patient: Segura,Shanelle ?MR#: [id number] ?? [id number] ? : 1950 ?Acct:[id number] ? Age/Sex: 74 / F ?ADM Date: 02/13/25 ? Loc: HO.MAMMO ? Attending : Katja [place] TREE GIRDLER ? Ordering Physician: Katja Tony TREE GIRDLER ?Results: ? Date of Service: 04/17/24 ?Follow Up: ? Procedure(s): XR DEXA axial skeleton ?? Accession Number(s): [id number] ? cc: Katja Tony TREE GIRDLER ? EXAMINATION: ??DXA BONE DENSITY AXIAL ? HISTORY: ??Estrogen deficiency ? TECHNIQUE: [employer] Dual energy absorptiometry (DEXA) ?? of the lumbar spine, total left hip, and femoral neck was performed. ? COMPARISON: Comparison is made with the prior examination dated ?? 06/02/2021. ? FINDINGS: ? The bone mineral density of the lumbar spine is 0.892 with a T-score of ?? -2.4, and a Z-score of -0.5. ? This represents a BMD change of -1.5% compared to the prior exam. ??This ?? is not statistically significant. ? The bone mineral density of the left total hip is 0.719 with a T-score ?? of -2.3, and a Z-score of -0.5. ? This represents BMD change of -8.4% compared to the prior exam. ??This ?? is statistically significant. ? The bone mineral density of the left femoral neck is 0.740 with a ?? T-score of -2.1, and a Z-score of -0.2. ? This represents BMD change of -7.5% compared to the prior exam. ? FRACTURE RISK: ?? The FRAX index suggests a ten year probability of major osteoporotic ?? fracture of 9.7%, and of hip fracture 2.7%. ? MM/XR DEXA axial skeleton ?? IMPRESSION: ?? Based on bone mineral density, and according to World Health ?? Organization (WHO) criteria, the diagnosis is consistent with ?? osteopenia. ? All bone density values are in grams per centimeter squared (g/cm2). ?? Statistically, 68% of repeat scans fall within 1 SD (+/- 0.010 g/cm2 ?? for AP spine L1-L4) and 1 SD (+/- 0.012 g/cm2 for femur total) ?? FRAX is a trademark of the [employer]'s ?? [employer] for Metabolic Bone Disease, a World Health Organization (WHO) ?? Collaborating Center. ? Electronically signed by: ??Westley Remy MD ??04/17/2024 09:37 AM EST ? Dictated By: ?Westley Remy MD ? Signed By: ?<Electronically signed by Westley Remy MD in OV> ?04/17/24 0937 ? DD/ 0905 ? TD/TT: 04/17/24929 ? Glass Presser: ? Procedure Note Matthew Zavala - 04/17/2024 [place] [facility] [address] [place] [address] Mammography Report Signed Patient: Sharan Segura#: [id number] : 2Acct:[id number] Age/Sex: 74 / FADM Date: 04/17/24 Loc: JEN Attending Dr: Katja Tony TREE GIRDLER Ordering Physician: Katja Tony FNPResults: Date of Service: 04/17/24Follow Up: Procedure(s): XR DEXA axial skeleton Accession Number(s): [id number] cc: Katja Tony EXAMINATION: DXA BONE DENSITY AXIAL HISTORY: Estrogen deficiency TECHNIQUE: [employer] Dual energy absorptiometry (DEXA) of the lumbar spine, total left hip, and femoral neck was performed. COMPARISON: Comparison is made with the prior examination dated 06/02/2021. FINDINGS: The bone mineral density of the lumbar spine is 0.892 with a T-score of -2.4, and a Z-score of -0.5. This represents a BMD change of -1.5% compared to the prior exam. This is not statistically significant. The bone mineral density of the left total hip is 0.719 with a T-score of -2.3, and a Z-score of -0.5. This represents BMD change of -8.4% compared to the prior exam. This is statistically significant. The bone mineral density of the left femoral neck is 0.740 with a T-score of -2.1, and a Z-score of -0.2. This represents BMD change of -7.5% compared to the prior exam. FRACTURE RISK: The FRAX index suggests a ten year probability of major osteoporotic fracture of 9.7%, and of hip fracture 2.7%. MM/XR DEXA axial skeleton IMPRESSION: Based on bone mineral density, and according to World Health Organization (WHO) criteria, the diagnosis is consistent with osteopenia. All bone density values are in grams per centimeter squared (g/cm2). Statistically, 68% of repeat scans fall within 1 SD (+/- 0.010 g/cm2 for AP spine L1-L4) and 1 SD (+/- 0.012 g/cm2 for femur total) FRAX is a trademark of the [employer]'s [employer] Metabolic Bone Disease, a World Health Organization (WHO) Collaborating Center. Electronically signed by: Westley Remy MD 04/17/2024 09:37 AM EST Dictated By: Westley Remy MD Signed By: <Electronically signed by Westley Remy MD in OV> 04/17/24 0937 DD/ 4 TD/TT: 04/17/24929 Glass Presser: [facility] IM DXA PROCEDURES Edited Res ult - Final * BI Mammogram Screening Tomosynthesis Bilateral (03/31/2024 11:00 AM EST) Anatomical Region Laterality Modality Breast Bilateral Mammography 03/31/2024 11:0 0 AM EST Narrative 04/08/2024 4:42 PM EST ? [facility] ? [address] ?[place], [place] [address] ? Mammography Report ? Signed ? Patient: Segura,Shanelle ?MR#: [id number] ?? 2419 ? : 1950 ?Acct:[id number] ? Age/Sex: 74 / F ?ADM Date: 03/31/ ? Loc: HO.MAMMO ? Attending Dr: Katja Madison TREE GIRDLER ? Ordering Physician: Cecily,Katja TREE GIRDLER ?Results: 1Nega ?? tive ? Date of Service: 03/31/ ?Follow Up: 1 Year From Orig ?? inal Mammogram ? Procedure(s): MM tomosynthesis screening BI ?? Accession Number(s): [id number] ? cc: [place],Katja TREE GIRDLER ? EXAMINATION: ?? MM SCREENING DIGITAL BREAST [...] DD/ 1100 ? TD/TT: 03/31/24 1121 ? Glass Presser: ? Procedure Note Matthew Zavala - 04/08/2024 [facility] [address] [place] [address] Mammography Report Signed Patient: Sharan Segura#: [id number] : 2Acct:[id number] Age/Sex: 74 / FADM Date: 03/31/24 Loc: JEN Attending Dr: aKtja Tony TREE GIRDLER Ordering Physician: Katja Tony FNPResults: 1Nega tive Date of Service: 03/31/24Follow Up: 1 Year From Orig inal Mammogram Procedure(s): MM tomosynthesis screening BI Accession Number(s): [id number] cc: Katja Tony TREE GIRDLER EXAMINATION: MM SCREENING DIGITAL BREAST TOMOSYNTHESIS, BILATERAL [...] 04/08/24 1639 DD/ 1100 TD/TT: 03/31/24 1121 Glass Presser: [facility] TREE GIRDLER IMG BI PROCEDURES Final Resul t * Lipid Panel, Standard (04/16/2023 9:55 AM EST) Triglycerides 81 <150 mg/dL [facility] Comment:Desirable Triglyceri de: less than 150 mg/dLBorderline High Triglyceride 150-199 mg/dLHigh Triglyceride: 200-499 mg/dLVery High Triglyceride: greater than or equal to 5OO mg/dL Cholesterol 130 <200 mg/dL [facility] Comment:Desirable Cholestero l: less than 200 mg/dLBorderline High Cholesterol: 200-239 mg/dLHigh Cholesterol: greater than 239 mg/dL LDL Cholesterol Calculated 68 <100 mg/dL [facility] Comment:Desirable LDL: less than 100 mg/dLNear Optimal/Above Optimal LDL: 110- 129 mg/dLBorderline High LDL: 130-159 mg/dLHigh LDL: 160-189 mg/dLVery High LDL: greater than or equal to 190 mg/dL HDL Cholesterol 46 >40 mg/dL [facility] Comment:Desirable HDL: great er than 40 mg/dL Note: This HDL assay may give artificially low results in patients with liver disease. Blood Venous blood specimen / Unknown 04/16/2023 9:55 AM EST 04/16/2023 11:24 AM EST [facility] TREE GIRDLER LAB BLOOD ORDERABLES Final Re sult [facility] [address] [place] [address] [phone] * HEPATITIS C AB W/REFL TO HCV RNA, QN, PCR (01/08/2020 10:50 AM EST) HEPATITIS C ANTIBODY NON-REACT BILLY NON-REACT BILLY [facility] INDEX 0.04 <1.00 [facility] Comment: ?? HCV antibody was non-reactive. There is no laboratory ?? evidence of HCV infection. ?? In most cases, no further action is required. However, if recent HCV exposure is suspected, a test for HCV RNA (test code 14168) is suggested. ?? For additional information please refer to http://education.1Lay/faq/JJC45j0 (This link is being provided for informational/ educational purposes only.) ?? 01/08/2020 10:5 0 AM EST Jovita Ordonez MD HISTORICAL/NON ORDERABLE LABS Final Result Performing Organization Address City/[facility]/ZIP Co de Phone Number [facility] [address] [place] [address], * Hm Colonoscopy (08/24/2015 9:01 AM EDT) Historical Provider HEALTH MAINTENANCE Final Result from Last 3 Months or Most Recently Relevant to Health Maintenance Insurance [facility] Care Teams Component Assembler Supervisor Relationship Specialty Start Date End Date Katja Tony FNP [address] [place] [phone] PCP - General Family Medicine 11/30/20
--- OUTSIDE RECORDS SUMMARY | 2024-05-07 10:13 | XMS_ITS | Encounter Summary ---
Author Organization [employer] Address [address] [facility] 7t [place] [address] Care Team Providers Care Dobby Loom Weaver Name Role Phone [facility] Primary Care Provider [phone] Encounter Details Date Type Department Care Team ([facility] st Contact Info) Description 03/31/2024 Orders Only [facility] [address] [place], [place] [phone] [facility] [address] [place], [place] [phone] Social History Tobacco Use Types Packs/Day Years [...] Upcoming Encounters Date Type Department Care Team ([facility] st Contact Info) Description 05/19/2024 10:00 AM EDT Office Visit [facility] [address] [place] [address] [facility] [address] [place] [address] documented as of this encounter Procedures Procedure Name Priority Date/Time Associated Diagnosis Comments BI MAMMOGRAM SCREENING TOMOSYNTHESIS BILATERAL Routine 03/31/2024 11:00 AM EST documented in this encounter Results * BI Mammogram Screening Tomosynthesis Bilateral (03/31/2024 11:00 AM EST) Anatomical Region Laterality Modality Breast Bilateral Mammography 03/31/2024 11:0 0 AM EST Narrative 04/08/2024 4:42 PM EST ? [facility] ? [address] ?[place] [address] ? Mammography Report ? Signed ? Patient: Segura,Shanelle ?MR#: [id number] ?? 2419 ? : 1950 ?Acct:[id number] ? Age/Sex: 74 / F ?ADM Date: /27/25 ? Loc: HO.MAMMO ? Attending Dr: Katja Tony DE IONIZER OPERATOR ? Ordering Physician: Katja Tony DE IONIZER OPERATOR ?Results: 1Nega ?? tive ? Date of Service: 03/31/24 ?Follow Up: 1 Year From Orig ?? inal Mammogram ? Procedure(s): MM tomosynthesis screening BI ?? Accession Number(s): [id number] ? cc: Katja Tony DE IONIZER OPERATOR ? EXAMINATION: ?? MM SCREENING DIGITAL [...] DD/ 1100 ? TD/TT: 03/31/24 1121 ? District Plant Supervisor: ? Procedure Note Donotuseinterpreter, Image - 04/08/2024 [place] [facility] [address] [place] [address] Mammography Report Signed Patient: Sharan Segura#: [id number] : 2Acct:[id number] Age/Sex: 74 / FADM Date: 03/31/24 Loc: JEN Attending Dr: Katja Tony DE IONIZER OPERATOR Ordering Physician: Katja Tony FNPResults: 1Nega tive Date of Service: 03/31/24Follow Up: 1 Year From Orig inal Mammogram Procedure(s): MM tomosynthesis screening BI Accession Number(s): [id number] cc: Katja Tony DE IONIZER OPERATOR EXAMINATION: MM SCREENING DIGITAL BREAST TOMOSYNTHESIS, [...] 04/08/24 1639 DD/ 1100 TD/TT: 03/31/24 1121 District Plant Supervisor: [facility] IMG BI PROCEDURES Final Resul t documented in this encounter Visit Diagnoses Not on filedocumented in this encounter Additional Health Concerns Assessment Noted Time PHQ-9 Depression Total Score: 0 09/10/19 24 9:47 AM EDT documented as of this encounter Care Teams Dobby Loom Weaver Relationship Specialty Start Date End Date Katja Tony FNP [address] [place] [id number] PCP - General Family Medicine 11/30/20 documented as of this encounter
--- OUTSIDE RECORDS SUMMARY | 2024-05-07 10:13 | XMS_ITS | Encounter Summary ---
Author Organization [employer] Address [address] [facility] 7t [place] [address] Care Team Providers Care Clean Rice Broker Name Role Phone [facility] Primary Care Provider [phone] Reason for Visit * Reason Comments Med Refill Encounter Details Date Type Department Care Team (Late st Contact Info) Description 04/28/2024 Refill [facility] [address] [place], [place] [phone] [facility] [address] [place], [place] [phone] Social History Tobacco Use Types Packs/Day Years [...] 10:00 AM EDT Office Visit [facility] [address] [place] [address] Katja Tony FNP [address] [place] [address] documented as of this encounter Visit Diagnoses Not on filedocumented in this encounter Additional Health Concerns Assessment Noted Time PHQ-9 Depression Total Score: 0 09/10/19 24 9:47 AM EDT documented as of this encounter Care Teams Clean Rice Broker Relationship Specialty Start Date End Date Katja Tony FNP [address] [place] [address] PCP - General Family Medicine 11/30/20 documented as of this encounter
--- OUTSIDE RECORDS SUMMARY | 2024-05-07 10:13 | XMS_ITS | Encounter Summary ---
Author Organization [employer] Address [address] [facility] [address] [place] [address] Care Team Providers Care Medical Leader Name Role Phone [facility] Primary Care Provider [phone] Reason for Visit * Reason Onset Date Comments Plan of Care 05/01/2024 Encounter Details Date Type Department Care Team ([facility] st Contact Info) Description 05/01/2024 Telephone [facility] [address] [place], [place] [phone] [facility] [address] [place], [place] [phone] Plan of Care Social History Tobacco Use Types Packs/Day Years [...] Encounter - Tena Rg RN - 05/06/2024 9:00 AM EST Voicemail left requesting call back. Will re-task for re-attempt[place] [id number] * Telephone Encounter - Tena Rg RN - 05/06/2024 9:00 AM EST ----- Message from [facility] sent at 05/05/2024 5:18 PM EST ----- Please advise patient that bone density screening shows decline in the strength of her bones. We will discuss treatment at her upcoming visit however in anticipation of this please have her complete some initial labs which I will send in. Thank you! Nonfasting okay. * Telephone Encounter - Tom Baum - 05/01/2024 10:42 AM EST Tc from pt stating that she needs PA for med Enalapril-hydroCHLOROthiazide 5- 12.5 MG tablet. Contact pt Daughter at [phone] documented in this encounter Plan of Treatment Upcoming Encounters Date Type Department Care Team (Late st Contact Info) Description 05/19/2024 10:00 AM EDT Office Visit [facility] [address] [place] [address] Katja Tony FNP [address] [place] [address] documented as of this encounter Visit Diagnoses Not on filedocumented in this encounter Additional Health Concerns Assessment Noted Time PHQ-9 Depression Total Score: 0 09/10/19 24 9:47 AM EDT documented as of this encounter Care Teams Medical Leader Relationship Specialty Start Date End Date Katja Tony FNP [address] [place] [phone] PCP - General Family Medicine 11/30/20 documented as of this encounter
[2024-05-07 13:38] LABS: MANUAL DIFF FLAG NO
[2024-05-07 13:46] LABS: Basophils Percent Auto 0.5 % (0-2); Eosinophils Percent Auto 0.7 % (0-4); Hematocrit 38.6 % (37.0-47.0); Hemoglobin 12.6 g/dl (12.0-16.0); Imm Gran Abs Auto 0.01 X10*3/uL (0.00-0.03); Imm Gran Pct Auto 0.2 % (0.0-0.4); Lymphocytes Absolute Auto 2.1 X10*3/uL (1.2-4.9); Lymphocytes Percent Auto 35.5 % (20-40); Mean Corpuscular HGB Conc 32.6 g/dl (31.0-35.0); Mean Corpuscular Hemoglobin 29.9 pg (27.0-33.0); Mean Corpuscular Volume 91.7 fL (80.0-98.0); Mean Platelet Volume 10.6 fL (9.4-12.3); Monocytes Absolute Auto 0.7 X10*3/uL (0.1-1.2); Neutrophils Absolute Auto 3.1 x10*3/uL (2.0-8.3); Neutrophils Percent Auto 52.1 % (45-73); Platelet Count 167 X10*3/uL (160-400); Red Blood Count 4.21 X10*6/uL (4.20-5.50); Red Cell Distribution Width 13.8 % (11.0-16.0); White Blood Count 5.9 X10*3/uL (4.8-10.8)
[2024-05-07 14:11] LABS: Alanine Aminotransferase 25 U/L (0-31); Albumin Level 3.9 g/dL (3.5-5.0); Alkaline Phosphatase 130 U/L (39-117); Anion Gap 8 (12-20); Aspartate Amino Transferase 35 U/L (5-31); Bilirubin Total 0.7 mg/dL (0.0-1.0); Blood Urea Nitrogen 16 mg/dL (9-16); Calcium 9.3 mg/dL (8.4-10.2); Carbon Dioxide 29 mmol/L (22-29); Chloride 107 mmol/L (96-108); Estimated Glomerular Filt Rate > 60; Glucose Random 101 mg/dL (60-115); Potassium 3.2 mmol/L (3.3-5.1); Sodium 141 mmol/L (135-145); Total Protein 7.3 g/dL (6.5-8.0)
[2024-05-07 14:13] LABS: TSH reflex Free T4 16.37 uIU/mL (0.32-4.0); Vitamin D 25-OH Total 48.9 ng/mL (>30)
[2024-05-07 15:16] LABS: Free T4 (Free Thyroxine) 0.56 ng/dL (0.71-1.85)
== END 2024-05-07 09:15 | disposition home or self-care (01) ==
LOC: HO.HMGCLDS 09:14
PROVIDERS: PCP Registered Nurse; Visit Provider Registered Nurse
DX: M85.80 Other specified disorders of bone density and structure, unspecified site (principal); Z78.0 Asymptomatic menopausal state
CPT/HCPCS: 36415; 80053; 82306; 84439; 84443; 85025

== ENCOUNTER 2024-05-19 11:14 | Outpatient (REF) | payer OTHER, SELFPAY ==
--- NOTE | ~2024-05-19 | XR_ITS ---
EXAMINATION: XR PELVIS 1-2 VIEWS, XR HIP 2 OR MORE VIEWS LEFT, XR HIP 2 OR MORE VIEWS RIGHT HISTORY: PAIN COMPARISON: There are no prior studies for comparison. FINDINGS: A single AP view of the pelvis and 2 views of each hip are submitted. Osseous mineralization is normal. There is no fracture or dislocation. The right hip joint space is maintained. There is mild narrowing of the left hip. The soft tissues are unremarkable. XR/XR hip RT min 2V IMPRESSION: Mild narrowing of the left hip. Electronically signed by: Westley Remy MD 05/19/2024 12:59 PM EDT
--- NOTE | ~2024-05-19 | XR_ITS ---
EXAMINATION: XR PELVIS 1-2 VIEWS, XR HIP 2 OR MORE VIEWS LEFT, XR HIP 2 OR MORE VIEWS RIGHT HISTORY: PAIN COMPARISON: There are no prior studies for comparison. FINDINGS: A single AP view of the pelvis and 2 views of each hip are submitted. Osseous mineralization is normal. There is no fracture or dislocation. The right hip joint space is maintained. There is mild narrowing of the left hip. The soft tissues are unremarkable. XR/XR pelvis 1-2V IMPRESSION: Mild narrowing of the left hip. Electronically signed by: Westley Remy MD 05/19/2024 12:59 PM EDT
--- NOTE | ~2024-05-19 | XR_ITS ---
EXAMINATION: XR PELVIS 1-2 VIEWS, XR HIP 2 OR MORE VIEWS LEFT, XR HIP 2 OR MORE VIEWS RIGHT HISTORY: PAIN COMPARISON: There are no prior studies for comparison. FINDINGS: A single AP view of the pelvis and 2 views of each hip are submitted. Osseous mineralization is normal. There is no fracture or dislocation. The right hip joint space is maintained. There is mild narrowing of the left hip. The soft tissues are unremarkable. XR/XR hip LT min 2V IMPRESSION: Mild narrowing of the left hip. Electronically signed by: Westley Remy MD 05/19/2024 12:59 PM EDT
[2024-05-19 13:45] LABS: Anion Gap 10 (12-20); Blood Urea Nitrogen 18 mg/dL (9-16); Calcium 9.8 mg/dL (8.4-10.2); Carbon Dioxide 29 mmol/L (22-29); Chloride 106 mmol/L (96-108); Estimated Glomerular Filt Rate > 60; Glucose Random 89 mg/dL (60-115); Potassium 4.1 mmol/L (3.3-5.1); Sodium 141 mmol/L (135-145)
[2024-05-19 14:07] LABS: Thyroid Stimulating Hormone 23.81 uIU/mL (0.32-4.0)
[2024-05-20 05:25] LABS: Triiodothyronine T3 Total 70 ng/dL (76-181)
== END 2024-05-19 11:15 | disposition home or self-care (01) ==
LOC: HO.HHCL 11:14
PROVIDERS: Visit Provider Registered Nurse
DX: E05.90 Thyrotoxicosis, unspecified without thyrotoxic crisis or storm (principal); M25.551 Pain in right hip; M25.552 Pain in left hip; G89.29 Other chronic pain
CPT/HCPCS: 36415; 72170; 73502; 80048; 84439; 84443; 84480

== ENCOUNTER → 2024-05-19 11:32 | Outpatient (BNV) | payer OTHER, SELFPAY | PROVIDERS: Visit Provider Radiology Diagnostic Radiology | DX: M25.552 Pain in left hip (principal); M25.551 Pain in right hip | CPT/HCPCS: 72170; 73502 ==

== ENCOUNTER 2024-06-16 09:49 | Outpatient (AMB) | payer OTHER, SELFPAY ==
--- NOTE | 2024-06-16 09:51 | MHC.OFFVIS ---
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 The pain has been persistent for many years and is aggravated by cold weather, heavy activities, and positional changes during sleep. Her pain, rated at 9/10, improves slightly with rest. The pain, described as dull and achy, also radiates to the left leg. She avoids right-sided sleeping due to increased hip pain. Her medical history includes back surgery over 20 years ago and a back injection prior to surgery with minimal improvement. Imaging performed revealed degenerative changes in her hips and spine and degenerative changes in the bilateral sacroiliac joints. She has osteopenia, for which she takes calcium and vitamin D. Previous physical therapy provided no relief. Recent imaging indicates facet arthropathy in the spine. - Onset and Timing: Chronic with several years' duration. - Quality: Constant, dull, sore, aching, heavy, and tingling. - Location: Primarily low back and both hips, radiating to the left leg. - Exacerbating Factors: Cold weather, heavy lifting, climbing stairs, changing sleep positions. - Relieving Factors: Rest. - Interference: Difficulty with sleep position, prefers not to sleep on the right side due to hip pain. - Affect: Pain impacts daily living and sleep; potential psychological strain not discussed. - Analgesia: Currently using ibuprofen 400 mg and cyclobenzaprine 5 mg with only minor relief. - Adverse Effects: None reported. - Activities of Daily Living: Pain interferes with rest, sleep, and general movement; physical therapy was ineffective. - Aberrant Drug Related Behaviors: None reported. [facility] Medical History Hypertension Hyperthyroidism Osteopenia Chronic right-sided low back pain without sciatica Chronic hip pain, bilateral Social History Alcohol intake: never Patient Tobacco Use Status: Never used Tobacco Review of Systems Const Details: - Musculoskeletal: Reports chronic low back pain, bilateral hip pain, buttock pain with tingling radiating to the left leg; denies knee injections. - Neurological: Denies feeling legs are hurting, occasionally experiences head tremor. - Endocrine: Osteopenia, management with calcium and vitamin D. - Gastrointestinal: Denies groin pain with hip rotation. - General: Denies falls or major injuries. All systems reviewed & are unremarkable except as noted in HPI and below Physical Exam Vital Signs: Last Vital Signs Pulse 69 06/16/24 09:57 BP 111/59 L 06/16/24 09:57 Pulse Ox 97 06/16/24 09:57 Oxygen Delivery Method Room Air 06/16/24 09:57 BMI result Body Mass Index 24.9 General: Appears afebrile. Alert and oriented. Mood and affect appropriate. Follows and participates in conversation appropriately. Respiratory effort is unlabored. No cough. Able to transition from sit to stand unassisted. Ambulates with bilaterally normal heel strike and toe off. General: Yes no CVA tenderness Back/Spine/Pelvis Other: Limited lumbar ROM due to pain. The patient has 5/5 strength in her upper and lower extremities. She ambulates well and rises from a seated position with mild to moderate difficulty. Demonstrates 5/5 strength of quadriceps bilaterally as well as flexion/dorsiflexion of bilateral feet against resistance. 2+ pedal pulses bilaterally. Straight leg rise with dorsiflexion negative bilaterally. Diminished patellar and achilles reflexes bilaterally. Facet loading test positive bilaterally. Shameka sign, Quinn?s, Gaenslen, Pelvic compression and Stinchfield tests are positive bilaterally. No groin pain with I/E hip rotations. Valsalva maneuver negative. Back: no CVA tenderness Cervical Spine: cervical ROM normal, cervical muscular tenderness, No Cervical spine scars present and No Cervical spine tenderness Thoracic/Lumbar Spine: thoracic and lumbar spine normal to inspection, Thoracic/lumbar spine scar(s), Lasegue's sign negative, straight leg raise negative bilaterally, pain with thoraco-lumbar ROM, paraspinal muscle tenderness, thoraco-lumbar ROM limited, No thoracic spinal tenderness and lumbar spinal tenderness at L4 and at L5 Pelvis: buttock tenderness bilaterally Sacroiliac joints: bilaterally tender to palpation Extrem General: Yes capillary refill normal, Yes no clubbing, cyanosis or edema and Yes no calf tenderness Results Reviewed Results Reviewed: XR DEXA axial skeleton 05/19/24 IMPRESSION: Based on bone mineral density, and according to World Health Organization (WHO) criteria, the diagnosis is consistent with osteopenia. XR PELVIS 1-2 VIEWS, XR HIP 2 OR MORE VIEWS LEFT, XR HIP 2 OR MORE VIEWS RIGHT 05/19/24 HISTORY: PAIN COMPARISON: There are no prior studies for comparison. FINDINGS: A single AP view of the pelvis and 2 views of each hip are submitted. Osseous mineralization is normal. There is no fracture or dislocation. The right hip joint space is maintained. There is mild narrowing of the left hip. The soft tissues are unremarkable. IMPRESSION: Mild narrowing of the left hip. XR LUMBOSACRAL SPINE 04/16/23 CLINICAL INFORMATION: Patient daughter states low back pain, right-sided, for one week, no injury. Difficult to get images of L5-S1, best images obtained per technologist. COMPARISON: 08/15/2021 lumbar spine radiographs. TECHNIQUE: Three views of the lumbosacral spine.Difficult to get images of L5-S1, best images obtained per technologist. FINDINGS: The bones are diffusely demineralized. Facet arthritis in the lower lumbar spine. Degenerative changes with sclerosis on images of the bilateral sacroiliac joints. Degenerative changes in the imaged lower thoracic spine. Redemonstration of mild endplate concavities at L4 and L5. Mild degenerative changes with loss of disc space height at L4-L5 and L5-S1. Visualization limited due to overlying bone and soft tissue structures. Atherosclerotic aortoiliac calcifications. IMPRESSION: 1. Mild degenerative disc disease at L4-L5 and L5-S1. 2. Facet arthritis in the lower lumbar spine. 3. Degenerative changes in the bilateral sacroiliac joints. Assessment & Plan Assessment & Plan (1) Chronic sacroiliac joint pain: Code(s): M53.3 - Sacrococcygeal disorders, not elsewhere classified; G89.29 - Other chronic pain Category: Medical (2) Chronic hip pain, bilateral: Code(s): M25.551 - Pain in right hip; M25.552 - Pain in left hip; G89.29 - Other chronic pain Category: Medical (3) Chronic right-sided low back pain without sciatica: Code(s): M54.50 - Low back pain, unspecified; G89.29 - Other chronic pain Category: Medical (4) Sacroiliitis: Code(s): M46.1 - Sacroiliitis, not elsewhere classified Category: Medical Plan: Plan The immediate plan includes bilateral SI joint steroid injections with local and fluoroscopy aimed at reducing joint pain and discomfort. Expectations, risks and benefits were reviewed. Patient is aware she will be contacted to schedule this procedure. Depending on the therapeutic outcome, interventional procedures such as radiofrequency ablation or nerve stimulation might be considered for sustained relief. Additionally, the patient should maintain regular exercise emphasizing strength training to mitigate the effects of osteopenia and lower fall risk. Continued use of calcium and vitamin D as prescribed. All questions and concerns have been answered and patient agreed with the plan. Follow up after injections and sooner as needed. Patient was informed and verbally consented to the use of an ambient scribe for clinic note documentation during this visit. Patient Instructions: I reviewed the patient's condition focusing on the diagnosis of chronic low back and bilateral hip pain with contributing factors such as osteopenia and degenerative joint disease. I explained the benefits and limitations of the proposed steroid injections for managing SI joint pain and discussed the long-term options of radiofrequency ablation or nerve stimulation. Risks, side effects, and the temporary nature of steriodal efficacy were discussed. The patient consented to initial SI joint injection therapy. I suggested a specific exercise regimen for strengthening and maintaining bone health and advised on the importance of continued calcium and vitamin D supplementation. - Undergo SI joint steroid injections as scheduled. - Continue taking calcium and vitamin D supplements as directed. - Engage in regular strength resistance exercises. - Monitor for alleviation of pain following the injection and report any side effects. - Avoid activities that exacerbate pain, like heavy lifting or strenuous physical exertion. - Follow up for further evaluation and discuss long-term options like radiofrequency ablation if needed. - Seek care if there are any new symptoms such as increased pain, falls, or other concerns. Coding Level of Care Code New Pt Level 4 (91479) Diagnoses Chronic sacroiliac joint pain M53.3; G89.29 Chronic hip pain, bilateral M25.551; M25.552; G89.29 Chronic right-sided low back pain without sciatica M54.50; G89.29 Sacroiliitis M46.1
[2024-06-16 09:57] VITALS: BP 111/59; PULSE 69; O2SAT 97; BMI 24.9
--- OUTSIDE RECORDS SUMMARY | 2024-06-16 10:59 | XMS_ITS | Clinical Summary ---
Author Organization [employer] Address [address] [facility] [address] [place] [address] Care Team Providers Care Syrup Maker Name Role Phone Cecily [facility] Primary Care Provider [phone] Allergies No known active allergies Medications lidocaine [...] and with evening meal. 60 tablet 11 07/20/19 24 025 Active Enalapril-hydro CHLOROthiazide 5-12.5 MG tablet TAKE 1 TABLET BY MOUTH EVERY MORNING 90 tablet 1 12/28/19 24 Active Blood Pressure kitIndications: Primary hypertension Use as directed 1 kit 03/17/19 25 Active ibuprofen 400 MG tabletIndicatio ns:Acute neck pain TAKE 1 TABLET BY MOUTH EVERY 4 TO 6 HOURS NEEDED 30 tablet 1 03/17/19 25 Active cholecalciferol (Vitamin D3) 25 MCG (1000 UT) tabletIndicatio ns:Osteopenia, unspecified location TAKE 1 TABLET BY MOUTH DAILY 30 tablet 11 05/13/19 25 Active methIMAzole (Tapazole) 10 MG tablet Take 10 mg by mouth 2 times daily. 12/21/19 24 025 Active rosuvastatin (Crestor) 10 MG tabletIndicatio ns:Primary hypertension TAKE 1 TABLET BY MOUTH EVERY MORNING 90 tablet 1 05/20/19 25 Active cyclobenzaprine (Flexeril) 5 MG tabletIndicatio ns:Chronic right-sided low back pain without sciatica Take 1 tablet (5 mg) by mouth at bedtime. 30 tablet 05/20/19 25 Active rosuvastatin (Crestor) 10 MG tablet TAKE 1 TABLET BY MOUTH EVERY MORNING 90 tablet 1 04/28/19 25 025 Discontinued(Re order (will not trigger notification [...] Encounters Date Type Department Care Team Description 05/22/2024 Telephone [facility] MEDICINE [address] [place] [address] Katja Tony FNP Care Coordination 05/21/2024 Telephone [facility] [place] [address] Katja Tony FNP Plan of Care 05/19/2024 10:00 AM EDT Office Visit [facility] [place] [address] Katja Tony FNP Hyperthyroidism (Primary Dx); Osteopenia, unspecified location; Primary hypertension; Chronic hip pain, bilateral; Chronic right-sided low back pain without sciatica; Dietary counseling; Exercise counseling 05/19/2024 Orders Only [facility] [address] [place] [address] Katja Tony FNP 05/19/2024 Travel 05/12/2024 Telephone [facility] [address] [facility] [place] [address] Katja Tony FNP Results 05/12/2024 Patient Outreach [facility] [place] [address] Katja Tony FNP Pre-visit Planning (SDOH screening negative and tobacco screening negative) 05/12/2024 Orders Only [facility] [place] [address] Katja Tony FNP Hyperthyroidism (Primary Dx) 05/11/2024 Refill [facility] [place] [address] Katja Tony FNP Osteopenia, unspecified location 05/07/2024 Orders Only [facility] [address] [facility] [place] [address] Katja Tony FNP 05/07/2024 Telephone [facility] [address] [facility] [place] [address] Katja Tony FNP Plan of Care 05/05/2024 Orders Only [facility] [place] [address] Katja Tony FNP Osteopenia after menopause (Primary Dx) 05/01/2024 Telephone [facility] [address] [facility] [place] [address] TivertonKatja FNP Plan of Care 05/01/2024 Refill [facility] [place] [facility] [place] [address] TivertonKatja FNP 04/28/2024 Telephone [facility] [address] [facility] [place] [address] TivertonKatja [facility] Prior Authorization 04/28/2024 Refill [facility] [place] [address] TivertonKatja FNP 03/31/2024 Orders Only [facility] [place] [address] TivertonKatja FNP from Last 3 Months Immunizations Name Administration [...] Access Answer Date Recorded Internet Access Q1 No 05/12/2024 Internet Access Q2 I do not want or need it 05/03 Comments Unknown Sex and Gender Information Value Date Recorded Sex Assigned at Female 01/02/2022 10:14 AM EDT Legal Sex Female 10:14 AM EDT Gender Identity Female 01/02/2022 10:14 AM EDT Sexual Orientation Straight 01/02/2022 10 :14 AM EDT Last Filed Vital Signs Vital Sign Reading Time Taken Comments Blood Pressure 131/71 05/19/2024 9:49 AM EDT Pulse 73 05/19/2024 9:49 AM EDT Temperature 36.6 ??C (97.8 ??F) 05/19/2024 9:49 AM ED T Respiratory Rate 16 05/19/2024 9:49 AM EDT Oxygen Saturation 100% 05/19/2024 9:49 AM EDT Inhaled Oxygen Concentration - - Weight 64.5 kg (142 lb 3.2 oz) 05/19/2024 9:49 A M EDT Height 157.5 cm (5' 2 ) 05/19/2024 9:49 AM EDT Body Mass Index 26.01 05/19/2024 9:49 AM EDT Plan of Treatment Health Maintenance Due Date Last Done Comments CT Colonography 1950 FIT DNA/Cologuard 1950 FIT 1950 FOBT 1950 Sigmoidoscopy 1950 Alcohol/Substance Use Screening 1962 COVID-19 Vaccine ( season) 2023 03/28/2021, 06/01/2020, 05/04/2020 Depression Screening 09/09/2024 09/10/2023, 09/10/19 24 Mammogram 03/31/2025 03/31/2024, 03/05, 03/13/2022, Additional history exists SDOH Screening 05/12/2025 05/12/2024 Tobacco Screening 05/21/2025 05/21/2024 Colonoscopy 08/23/2025 08/24/2015 Colorectal Cancer Screening 08/23/2025 [...] Procedure Name Priority Date/Time Associated Diagnosis Comments XR HIP 2 OR 3 VIEWS LEFT Routine 05/19/2024 11:32 AM EDT XR HIP 2 OR 3 VIEWS RIGHT Routine 05/19/2024 11:32 AM EDT XR PELVIS 1-2 VIEWS Routine 05/19/2024 1 1:32 AM EDT Chronic hip pain, bilateral T3, TOTAL Routine 05/19/2024 11:19 AM EDT Hyperthyroidism BASIC METABOLIC PANEL Routine 05/19/2024 11:19 AM EDT Hyperthyroidism T4, FREE Routine 05/19/2024 11:19 AM EDT Hyperthyroidism TSH Routine 05/19/2024 11:19 AM EDT Hyperthyroidism T4, FREE Routine 05/07/2024 9:38 AM EST TSH W/REFLEX TO FT4 Routine 05/07/2024 9 :38 AM EST Osteopenia after menopause CBC WITH AUTO DIFFERENTIAL Routine 05/07/2024 9:38 AM EST Osteopenia after menopause COMPREHENSIVE METABOLIC PANEL Routine 05/07/2024 9:38 AM EST Osteopenia after menopause VITAMIN D,25-OH,TOTAL,IA Routine 05/07/2024 9:38 AM EST Osteopenia after menopause BD DEXA AXIAL Routine 04/17/2024 9:05 AM [...] Recently Relevant to Health Maintenance Results * XR Pelvis 1-2 Views (05/19/2024 11:32 AM EDT) Anatomical Region Laterality Modality Body, Pelvis Radiographic May ging 05/19/2024 11:3 2 AM EDT Narrative 05/19/2024 1:02 PM EDT ? [facility] ?[address] ?[place] [address] ?XRay Report ? Signed ? Patient: Colton,Shanelle ?MR#: [id number] ?? 2419 ? : 1950 ?Acct:[id number] ? Age/Sex: 74 / F ?ADM Date: 05/19/24 ? Loc: HO.HHCL ? Attending Dr: Katja Tony PATTERN CARRIER ? Ordering Physician: Katja Tony ?? Date of Service: 05/19/24 ?? Procedure(s): XR pelvis 1-2V ?? Accession Number(s): [id number] ? cc: Katja Tony ? EXAMINATION: ??XR PELVIS 1-2 VIEWS, XR HIP 2 OR MORE VIEWS LEFT, XR HIP ?? 2 OR MORE VIEWS RIGHT ? HISTORY: PAIN ? COMPARISON: There are no prior studies for comparison. ? FINDINGS: ??A single AP view of the pelvis and 2 views of each hip are ?? submitted. Osseous mineralization is normal. There is no fracture or ?? dislocation. The right hip joint space is maintained. There is mild ?? narrowing of the left hip. The soft tissues are unremarkable. ? XR/XR pelvis 1-2V ?? IMPRESSION: ?? Mild narrowing of the left hip. ? Electronically signed by: ??Westley Remy MD ??05/19/2024 12:59 PM EDT ?? RP ? Dictated By: ?Westley Remy MD ? Signed By: ?<Electronically signed by Westley Remy MD in OV> ?05/19/24 1259 ? DD/ 1132 ? TD/TT: 05/19/24 1140 ? [employer]: ? Procedure Note Lucas, Matthew - 05/19/[address] [address] XRay Report Signed Patient: Sharan Segura#: [id number] 2419 : 2Acct:[id number] Age/Sex: 74 / FADM Date: 05/19/24 Loc: HO.[facility] Attending Dr: Katja Tiverton PATTERN CARRIER Ordering Physician: Tiverton,[facility] Date of Service: 05/19/24 Procedure(s): XR pelvis 1-2V Accession Number(s): [id number] cc: [facility] EXAMINATION: XR PELVIS 1-2 VIEWS, XR HIP 2 OR MORE VIEWS LEFT, XR HIP 2 OR MORE VIEWS RIGHT HISTORY: PAIN COMPARISON: There are no prior studies for comparison. FINDINGS: A single AP view of the pelvis and 2 views of each hip are submitted. Osseous mineralization is normal. There is no fracture or dislocation. The right hip joint space is maintained. There is mild narrowing of the left hip. The soft tissues are unremarkable. XR/XR pelvis 1-2V IMPRESSION: Mild narrowing of the left hip. Electronically signed by: Westley Remy MD 05/19/2024 12:59 PM EDT RP Dictated By: Westley Remy MD Signed By: <Electronically signed by Westley Remy MD in OV> 05/19/24 1259 DD/ 1132 TD/TT: 05/19/24 1140 Install[employer] Flooring: [facility] IMG XR PROCEDURES Final Resul t * XR Hip 2 or 3 Views Right (05/19/2024 11:32 AM EDT) Anatomical Region Laterality Modality Lower Extremities, Hip Right Radiograp hic Imaging 05/19/2024 11:3 2 AM EDT Narrative 05/19/2024 1:02 PM EDT ? [facility] ?[address] ?[place] [address] ?XRay Report ? Signed ? Patient: Segura,Shanelle ?MR#: [id number] ?? 2419 ? : 1950 ?Acct:[id number] ? Age/Sex: 74 / F ?ADM Date: 03/17/25 ? Loc: HO.HHCL ? Attending Dr: Katja Tony PATTERN CARRIER ? Ordering Physician: Katja Tony ?? Date of Service: 05/19/24 ?? Procedure(s): XR hip RT min 2V ?? Accession Number(s): [id number] ? cc: Katja Tony PATTERN CARRIER ? EXAMINATION: ??XR PELVIS 1-2 VIEWS, XR HIP 2 OR MORE VIEWS LEFT, XR HIP ?? 2 OR MORE VIEWS RIGHT ? HISTORY: PAIN ? COMPARISON: There are no prior studies for comparison. ? FINDINGS: ??A single AP view of the pelvis and 2 views of each hip are ?? submitted. Osseous mineralization is normal. There is no fracture or ?? dislocation. The right hip joint space is maintained. There is mild ?? narrowing of the left hip. The soft tissues are unremarkable. ? XR/XR hip RT min 2V ?? IMPRESSION: ?? Mild narrowing of the left hip. ? Electronically signed by: ??Westley Remy MD ??05/19/2024 12:59 PM EDT ? Dictated By: ?Westley Remy MD ? Signed By: ?<Electronically signed by Westley Remy MD in OV> ?05/19/24 1259 ? DD/ 1132 ? TD/TT: 05/19/24 1140 ? [employer]: ? Procedure Note Lucas, Matthew - 05/19/2024 [place] [address] XRay Report Signed Patient: Sharan Segura#: [id number] 2419 : 2Acct:[id number] Age/Sex: 74 / FADM Date: 05/19/24 Loc: [facility] Attending Dr: Katja Tony PATTERN CARRIER Ordering Physician: Katja Tony Date of Service: 05/19/24 Procedure(s): XR hip RT min 2V Accession Number(s): [id number] cc: Katja Tony [facility] EXAMINATION: XR PELVIS 1-2 VIEWS, XR HIP 2 OR MORE VIEWS LEFT, XR HIP 2 OR MORE VIEWS RIGHT HISTORY: PAIN COMPARISON: There are no prior studies for comparison. FINDINGS: A single AP view of the pelvis and 2 views of each hip are submitted. Osseous mineralization is normal. There is no fracture or dislocation. The right hip joint space is maintained. There is mild narrowing of the left hip. The soft tissues are unremarkable. XR/XR hip RT min 2V IMPRESSION: Mild narrowing of the left hip. Electronically signed by: Westley Remy MD 05/19/2024 12:59 PM EDT RP Dictated By: Westley Remy MD Signed By: <Electronically signed by Westley Remy MD in OV> 05/19/24 1259 DD/ 1132 TD/TT: 05/19/24 1140 [employer] Flooring: [facility] PATTERN CARRIER IMG XR PROCEDURES Final Resul t * XR Hip 2 or 3 Views Left (05/19/2024 11:32 AM EDT) Anatomical Region Laterality Modality Lower Extremities, Hip Left Radiograp hic Imaging 05/19/2024 11:3 2 AM EDT Narrative 05/19/2024 1:02 PM EDT ? [facility] ?[address] ?[place] [address] ?XRay Report ? Signed ? Patient: Segura,Shanelle ?MR#: [id number] ?? 2419 ? : 1950 ?Acct:[id number] ? Age/Sex: 74 / F ?ADM Date: 05/19/24 ? Loc: HO.HHCL ? Attending Dr: Katja Tony PATTERN CARRIER ? Ordering Physician: Katja Tony PATTERN CARRIER ?? Date of Service: 05/19/24 ?? Procedure(s): XR hip LT min 2V ?? Accession Number(s): [id number] ? cc: Cecily,Katja PATTERN CARRIER ? EXAMINATION: ??XR PELVIS 1-2 VIEWS, XR HIP 2 OR MORE VIEWS LEFT, XR HIP ?? 2 OR MORE VIEWS RIGHT ? HISTORY: PAIN ? COMPARISON: There are no prior studies for comparison. ? FINDINGS: ??A single AP view of the pelvis and 2 views of each hip are ?? submitted. Osseous mineralization is normal. There is no fracture or ?? dislocation. The right hip joint space is maintained. There is mild ?? narrowing of the left hip. The soft tissues are unremarkable. ? XR/XR hip LT min 2V ?? IMPRESSION: ?? Mild narrowing of the left hip. ? Electronically signed by: ??Westley Remy MD ??05/19/2024 12:59 PM EDT ?? RP ? Dictated By: ?Westlye Remy MD ? Signed By: ?<Electronically signed by Westley Remy MD in OV> ?05/19/249 ? DD/ 1132 ? TD/TT: 05/19/24 1140 ? [employer]: ? Procedure Note Donfelicitareginadedrick, Image - 05/19/[address] [address] XRay Report Signed Patient: Sharan Segura#: [id number] 2419 : 2Acct:[id number] Age/Sex: 74 / FADM Date: 05/19/24 Loc: HO.[facility] Attending Dr: Katja Tony PATTERN CARRIER Ordering Physician: Katja Tony Date of Service: 05/19/24 Procedure(s): XR hip LT min 2V Accession Number(s): [id number] cc: Katja Tony [facility] EXAMINATION: XR PELVIS 1-2 VIEWS, XR HIP 2 OR MORE VIEWS LEFT, XR HIP 2 OR MORE VIEWS RIGHT HISTORY: PAIN COMPARISON: There are no prior studies for comparison. FINDINGS: A single AP view of the pelvis and 2 views of each hip are submitted. Osseous mineralization is normal. There is no fracture or dislocation. The right hip joint space is maintained. There is mild narrowing of the left hip. The soft tissues are unremarkable. XR/XR hip LT min 2V IMPRESSION: Mild narrowing of the left hip. Electronically signed by: Westley Remy MD 05/19/2024 12:59 PM EDT Dictated By: Westley Remy MD Signed By: <Electronically signed by Westley Remy MD in OV> 05/19/24 1259 DD/ 1132 TD/TT: 05/19/24 1140 [employer]: [facility] IMG XR PROCEDURES Final Resul t * (ABNORMAL) T3, Total (05/19/2024 11:19 AM EDT) T3, Total 70(A) 76 - 181 ng/dL [facility] Comment:THIS TEST WAS PERFOR MED AT:[facility] [address] [place] [id number] JERONIMO MD Blood Venous blood specimen / Unknown 05/19/2024 11:19 AM EDT 05/19/2024 1:07 PM EDT [facility] LAB BLOOD ORDERABLES Final Re sult Performing Organization Address [facility]/ZIP Co de Phone Number [facility] [address] [place] [phone] * (ABNORMAL) TSH (05/19/2024 11:19 AM EDT) [facility] Thyroid Stimulating Hormone 23.81(H) 0.32 - 4.0 uIU/mL [facility] Comment:Note: A sustained TS H level above 2.5 uIU/mL may warrant further investigation. TSH 3rd Generation ([facility]) Blood Venous blood specimen / Unknown 05/19/2024 11:19 AM EDT 05/19/2024 1:07 PM EDT [facility] LAB BLOOD ORDERABLES Final Re sult Performing Organization Address City/[facility]/ZIP Co de Phone Number [facility] [address] [place] [phone] * (ABNORMAL) T4, Free (05/19/2024 11:19 AM EDT) Only the most recent of2 resultswithin the time period is included. Pathologist [facility] Free T4 (Free Thyroxine) 0.50(L) 0.71 - 1.85 ng/dL [facility] Blood Venous blood specimen / Unknown 05/19/2024 11:19 AM EDT 05/19/2024 1:07 PM EDT [facility] LAB BLOOD ORDERABLES Final Re sult Performing Organization Address City/[facility]/ZIP Co de Phone Number [facility] [address] [place] [address] [phone] * (ABNORMAL) Basic Metabolic Panel (05/19/2024 11:19 AM EDT) Sodium 141 135 - 145 mmol/L [facility] Potassium 4.1 3.3 - 5.1 mmol/L [facility] Chloride 106 96 - 108 mmol/L [facility] Carbon Dioxide 29 22 - 29 mmol/L [facility] Anion Gap 10(L) 12 - 20 [facility] Urea Nitrogen (BUN) 18(H) 9 - 16 mg/dL [facility] Creatinine, Serum 0.78 0.5 - 1.4 mg/dL [facility] Estimated Glomerular Filt Rate >60 [facility] Comment:Chronic Kidney Disea se: Estimated GFR < 60 mL/min/1.61s7Vzafoj Kidney Disease: Estimated GFR < 15 mL/min/1.73m2 Glucose 89 60 - 115 mg/dL [facility] Calcium 9.8 8.4 - 10.2 mg/dL [facility] Blood Venous blood specimen / Unknown 05/19/2024 11:19 AM EDT 05/19/2024 1:07 PM EDT [facility] LAB BLOOD ORDERABLES Final Re sult Performing Organization Address City/[facility]/ZIP Co de Phone Number [facility] [address] [place] [address] [phone] * Vitamin D, 25-Hydroxy, Total, Immunoassay (05/07/2024 9:38 AM EST) Vitamin D 25-OH Total 48.9 >30 ng/mL [facility] Comment:Health Based Referen ce Values*< 20 ng/mL Ageejdwdb24-05 ng/mL Insufficient> 30 ng/mL Sufficient*Lai PRETTY. N Engl J Med. 2007;357:266-280Care must be taken in interpreting Vitamin D results fromdifferent laboratories and methodologies. Published datademonstrated that results from patients undergoinghemodialysis may show a negative bias when tested withvarious automated 25-OH vitamin D assays when compared toLC-MS/MS.When testing samples from patients whose predominant form ofVitamin D is Vitamin D2, such as patients receiving VitaminD2 supplementation, results that are subtherapeutic shouldbe confirmed with another method such as LC-MS/MS. Blood Venous blood specimen / Unknown 05/07/2024 9:38 AM EST 05/07/2024 1:33 PM EST [facility] LAB BLOOD ORDERABLES Final Re sult Performing Organization Address [facility]/ZIP Co de Phone Number [facility] [address] [place] [phone] * (ABNORMAL) TSH W/Reflex to FT4 (05/07/2024 9:38 AM EST) TSH reflex Free T4 16.37(H) 0.32 - 4.0 uIU/mL [facility] Blood Venous blood specimen / Unknown 05/07/2024 9:38 AM EST 05/07/2024 1:33 PM EST [facility] LAB BLOOD ORDERABLES Final Re sult Performing Organization Address City/[facility]/ZIP Co de Phone Number [facility] [address] [place] [phone] * CBC auto differential (05/07/2024 9:38 AM EST) White Blood Count 5.9 4.8 - 10.8 X10*3/uL [facility] Red Blood Count 4.21 4.20 - 5.50 X10*6/uL [facility] Hemoglobin 12.6 12.0 - 16.0 g/dl [facility] Hematocrit 38.6 37.0 - 47.0 % [facility] Mean Corpuscular Volume 91.7 80.0 - 98.0 fL [facility] Mean Corpuscular Hemoglobin 29.9 27.0 - 33.0 pg [facility] Mean Corpuscular HGB Conc 32.6 31.0 - 35.0 g/dl [facility] Red Cell Distribution Width 13.8 11.0 - 16.0 % [facility] Platelet Count 167 160 - 400 X10*3/uL [facility] Mean Platelet Volume 10.6 9.4 - 12.3 fL [facility] Neutrophils Percent Auto 52.1 45 - 73 % [facility] Imm Gran Pct Auto 0.2 0.0 - 0.4 % [facility] Lymphocytes Percent Auto 35.5 20 - 40 % [facility] Monocytes Percent Auto 11.0 2 - 11 % [facility] Eosinophils Percent Auto 0.7 0 - 4 % [facility] Basophils Percent Auto 0.5 0 - 2 % [facility] NRBC Pct Auto 0.0 0.0 - 0.2 /100WBC [facility] Neutrophils Absolute Auto 3.1 2.0 - 8.3 x10*3/uL [facility] Imm Gran Abs Auto 0.01 0.00 - 0.03 X10*3/uL [facility] Lymphocytes Absolute Auto 2.1 1.2 - 4.9 X10*3/uL [facility] Monocytes Absolute Auto 0.7 0.1 - 1.2 X10*3/uL [facility] Eosinophils Absolute Auto 0.0 0.0 - 0.4 X10*3/uL [facility] Basophils Absolute Auto 0.0 0.0 - 0.2 X10*3/uL [facility] NRBC Abs Auto 0.000 0.0 - 0.012 X10*3/uL [facility] Blood Venous blood specimen / Unknown 05/07/2024 9:38 AM EST 05/07/2024 1:33 PM EST [facility] LAB BLOOD ORDERABLES Final Re sult Performing Organization Address City/[facility] Co de Phone Number [facility] [address] [place] [phone] [phone] * (ABNORMAL) Comprehensive Metabolic Panel (05/07/2024 9:38 AM EST) Sodium 141 135 - 145 mmol/L [facility] Potassium 3.2(L) 3.3 - 5.1 mmol/L [facility] Chloride 107 96 - 108 mmol/L [facility] Carbon Dioxide 29 22 - 29 mmol/L [facility] Anion Gap 8(L) 12 - 20 [facility] Urea Nitrogen (BUN) 16 9 - 16 mg/dL [facility] Creatinine, Serum 0.76 0.5 - 1.4 mg/dL [facility] Estimated Glomerular Filt Rate >60 [facility] Comment:Chronic Kidney Disea se: Estimated GFR < 60 mL/min/1.18h1Efsxre Kidney Disease: Estimated GFR < 15 mL/min/1.73m2 Glucose 101 60 - 115 mg/dL [facility] Calcium 9.3 8.4 - 10.2 mg/dL [facility] Bilirubin, Total 0.7 0.0 - 1.0 mg/dL [facility] Aspartate Amino Transferase 35(H) 5 - 31 U/L [facility] Alanine Aminotransferase 25 0 - 31 U/L [facility] Total Protein 7.3 6.5 - 8.0 g/dL [facility] Albumin Level 3.9 3.5 - 5.0 g/dL [facility] Alkaline Phosphatase 130(H) 39 - 117 U/L [facility] Blood Venous blood specimen / Unknown 05/07/2024 9:38 AM EST 05/07/2024 1:33 PM EST [facility] LAB BLOOD ORDERABLES Final Re sult [facility] [address] [place] [phone] * BD DEXA Axial (04/17/2024 9:05 AM EST) Anatomical Region Laterality Modality Body Radiographic May ging 04/17/2024 9:05 AM EST Narrative 04/17/2024 9:40 AM EST ? [facility] [place] ? [address] ?[place] [address] ? Mammography Report ? Signed ? Patient: Segura,Shanelle ?MR#: [id number] ?? 2419 ? : 1950 ?Acct:[id number] ? Age/Sex: 74 / F ?ADM Date: 04/17/24 ? Loc: HO.MAMMO ? Attending Dr: Katja Tiverton PATTERN CARRIER ? Ordering Physician: Cecily,Katja PATTERN CARRIER ?Results: ? Date of Service: 04/17/24 ?Follow Up: ? Procedure(s): XR DEXA axial skeleton ?? Accession Number(s): [id number] ? cc: Tiverton,Katja PATTERN CARRIER ? EXAMINATION: ??DXA BONE DENSITY AXIAL ? HISTORY: ??Estrogen deficiency ? TECHNIQUE: MONOQI Dual energy absorptiometry (DEXA) ?? of the [...] is a trademark of the [employer]'s ?? [place] [facility] Metabolic [facility] Disease, a World Health Organization (WHO) ?? Collaborating Center. ? Electronically signed by: ??Westley Remy MD ??04/17/2024 09:37 AM EST ?? RP ? Dictated By: ?Westley Remy MD ? Signed By: ?<Electronically signed by Westley Remy MD in OV> ?04/17/24 0937 ? DD/ 0905 ? TD/TT: 04/17/24 0930 ? [employer]: ? Procedure Note Donotuseinterpreter, Image - 04/17/[address] [place] [facility] [address] [place] [address] Mammography Report Signed Patient: Sharan Segura#: [id number] 2419 : 2Acct:[id number] Age/Sex: 74 / FADM Date: 04/17/24 Loc: [facility] Attending Dr: Katja Tony PATTERN CARRIER Ordering Physician: Katja TonyPResults: Date of Service: 04/17/24Follow Up: Procedure(s): XR DEXA axial skeleton Accession Number(s): [id number] cc: Katja Tony EXAMINATION: DXA BONE DENSITY AXIAL HISTORY: Estrogen deficiency TECHNIQUE: MONOQI Dual energy absorptiometry (DEXA) of the lumbar [...] of the [employer]'s [place] [facility], a World Health Organization (WHO) Collaborating Center. Electronically signed by: Westley Remy MD 04/17/2024 09:37 AM EST RP Dictated By: Westley Remy MD Signed By: <Electronically signed by Westley Remy MD in OV> 04/17/24 0937 DD/ 4 TD/TT: 04/17/24929 [employer]: [facility] PATTERN CARRIER IMG DXA PROCEDURES Edited Res ult - Final * BI Mammogram Screening Tomosynthesis Bilateral (03/31/2024 11:00 AM EST) Anatomical Region Laterality Modality Breast Bilateral Mammography 03/31/2024 11:0 0 AM EST Narrative 04/08/2024 4:42 PM EST ? [facility] ?[place] [address] ? Mammography Report ? Signed ? Patient: Segura,Shanelle ?MR#: [id number] ?? [id number] ? : 1950 ?Acct:[id number] ? Age/Sex: 74 / F ?ADM Date: /27/25 ? Loc: HO.MAMMO ? Attending Dr: Katja Cecily PATTERN CARRIER ? Ordering Physician: Tiverton,Katja PATTERN CARRIER ?Results: 1Nega ?? tive ? Date of Service: 03/31/24 ?Follow Up: 1 Year From Orig ?? inal Mammogram ? Procedure(s): MM tomosynthesis screening BI ?? Accession Number(s): [id number] ? cc: Katja Tony PATTERN CARRIER ? EXAMINATION: ?? MM SCREENING DIGITAL BREAST [...] DO in OV> ? 04/08/24 1639 ? DD/DT: 03/31/ 1100 ? TD/TT: 03/31/24 1121 ? Installer Metal Flooring: ? Procedure Note Donotuseinterpreter, Image - 04/08/2024 [facility] [address] [place] [address] [place] [address] Mammography Report Signed Patient: Sharan Segura#: [id number] : 2Acct:[id number] Age/Sex: 74 / FADM Date: 03/31/24 Loc: HO.MAMMO Attending Dr: Katja Tony PATTERN CARRIER Ordering Physician: Katja Tony FNPResults: 1Nega tive Date of Service: 03/31/24Follow Up: 1 Year From Orig inal Mammogram Procedure(s): MM tomosynthesis screening BI Accession Number(s): [id number] cc: Katja Tony PATTERN CARRIER EXAMINATION: MM SCREENING DIGITAL BREAST TOMOSYNTHESIS, BILATERAL [...] Jasmine Chong DO 04/08/2024 04:39 PM EST Dictated By: Jasmine Chong DO Signed By: <Electronically signed by Jasmine Chong DO in OV> 04/08/24 1639 DD/ 1100 TD/TT: 03/31/24 1121 Installer Metal Flooring: Katja Recinosside PATTERN CARRIER IMG BI PROCEDURES Final Resul t * Lipid Panel, Standard (04/16/2023 9:55 AM EST) Triglycerides 81 <150 mg/dL [facility] Comment:Desirable Triglyceri de: less than 150 mg/dLBorderline High Triglyceride 150-199 mg/dLHigh Triglyceride: 200-499 mg/dLVery High Triglyceride: greater than or equal to 5OO mg/dL Cholesterol 130 <200 mg/dL [facility] Comment:Desirable Cholestero l: less than 200 mg/dLBorderline High Cholesterol: 200-239 mg/dLHigh Cholesterol: greater than 239 mg/dL LDL Cholesterol Calculated 68 <100 mg/dL [facility] Comment:Desirable LDL: less than 100 mg/dLNear Optimal/Above Optimal LDL: 110- 129 mg/dLBorderline High LDL: 130-159 mg/dLHigh LDL: 160-189 mg/dLVery High LDL: greater than or equal to 190 mg/dL HDL Cholesterol 46 >40 mg/dL [facility] Comment:Desirable HDL: great er than 40 mg/dL Note: This HDL assay may give artificially low results in patients with liver disease. Blood Venous blood specimen / Unknown 04/16/2023 9:55 AM EST 04/16/2023 11:24 AM EST [facility] LAB BLOOD ORDERABLES Final Re sult [facility] [address] [place] [phone] * HEPATITIS C AB W/REFL TO HCV RNA, QN, PCR (01/08/2020 10:50 AM EST) HEPATITIS C ANTIBODY NON-REACT [facility] NON-REACT [facility] INDEX 0.04 <1.00 [facility] Comment: ?? HCV antibody was non-reactive. There is no laboratory ?? evidence of HCV infection. ?? In most cases, no further action is required. However, if recent HCV exposure is suspected, a test for HCV RNA (test code 89244) is suggested. ?? For additional information please refer to http://education.Rover Apps/faq/DAG75i3 (This link is being provided for informational/ educational purposes only.) ?? 01/08/2020 10:5 0 AM EST Jovita Ordonez MD HISTORICAL/NON ORDERABLE LABS Final Result [facility] [address] * Hm Colonoscopy (08/24/2015 9:01 AM EDT) us Historical Provider MD HEALTH MAINTENANCE Final Result from Last 3 Months or Most Recently Relevant to Health Maintenance Insurance [facility] Care Teams Syrup Maker Relationship Specialty Start Date End Date Katja Tony FNP [address] [place] [id number] PCP - General Family Medicine 11/30/20
--- OUTSIDE RECORDS SUMMARY | 2024-06-16 10:59 | XMS_ITS | Data Portability ---
Author Organization [employer] Address [address] [place] [id number] Care Team Providers Care Final Assembler Name Role Phone [facility] Referring Provider [facility] Referring Provider [phone] Assessment No assessment recorded. Plan of Treatment Reminders Order Date Submit Date Provider Last Modified By Organization Details Last Modified Time Details Appointments None recorded. Lab None recorded. Referral None recorded. Procedures None recorded. Surgeries None recorded. Imaging None recorded. Medication Orders azithromyci n 250 mg tablet 2021 PUNTA SANTIAGO [id number], [address], [place], [phone], 2 14:30:31 amoxicillin 875 mg-potassiu m clavulanate 125 mg tablet 2021 022 [facility] #[id number], [address], [place], [phone], 2 14:30:32 Patient TargetsNo targets recorded. Patient [...] 2462 Татьяна Salmon MD Main - [facility] [address] [place] [phone] 09/02/2021 14:12:18 11/02/2021 11:30:30 Dyspnea [id number] R06.00 dyspnea x1 week. R side w/ [...] Dangelo Member ID Guarantor Name 09/02/2021 1 [facility] - DOS PRIOR TO 2022 - DUAL ELIGIBLE (MEDICARE REPLACEMENT/AD VANTAGE - HMO) Shanelle Segura [id number] Shanelle Segura Notes Date Note Type Note [...] ................... ................... ................... ................... ................... ................... ........ Neonatal Intensive Care Unit Nurse Note: Pt states she was at the [...] ................... ........ Disposition: Fulfilled Татьяна Salmon MD [address] [place] [address],[facility] [facility], [place], [address], [email or web address] 09/02/2021 17:51:11 OBGyn Episode No OBEpisode recorded.
--- OUTSIDE RECORDS SUMMARY | 2024-06-16 10:59 | XMS_ITS | Encounter Summary ---
Author Organization [facility] Address [address] [facility] 7t [place] [address] Care Team Providers Care Roller Embosser Name Role Phone [facility] Primary Care Provider [phone] Encounter Details Date Type Department Care Team (Late st Contact Info) Description 06/13/2023 Orders Only [facility] [address] [place], [place] [phone] Provider, MD Aura Social History Tobacco Use Types Packs/Day Years [...] as of this encounter Plan of Treatment Not on file documented as of this encounter Procedures Procedure Name Priority Date/Time Associated Diagnosis Comments HM COLONOSCOPY Routine 08/24/2015 9:01 AM EDT documented in this encounter Results * Hm Colonoscopy (08/24/2015 9:01 AM EDT) us Historical Provider MD HEALTH MAINTENANCE Final Result documented in this encounter Visit Diagnoses Not on filedocumented in this encounter Additional Health Concerns Assessment Noted Time PHQ-9 Depression Total Score: 1 06/11/19 24 10:23 AM EDT documented as of this encounter Care Teams Roller Embosser Relationship Specialty Start Date End Date Katja Tony FNP [address] [place] [address] PCP - General Family Medicine 11/30/20 documented as of this encounter
--- OUTSIDE RECORDS SUMMARY | 2024-06-16 10:59 | XMS_ITS | Encounter Summary ---
Author Organization [email or web address] [facility] Address [address] [facility] 7t [place] [address] Care Team Providers Care Manufacturer Name Role Phone Katja Tony [facility] Primary Care Provider [phone] Reason for Visit * Reason Comments Med Refill Encounter Details Date Type Department Care Team (Late st Contact Info) Description 05/24/2023 Refill [facility] MEDICINE [address] [place], [place] [phone] Katja Tony [facility] [address] [place], [place] [phone] Social History Tobacco Use Types Packs/Day Years [...] on file documented as of this encounter Visit Diagnoses Not on filedocumented in this encounter Additional Health Concerns Assessment Noted Time PHQ-9 Depression Total Score: 0 04/16/19 24 9:00 AM EST documented as of this encounter Care Teams Manufacturer Relationship Specialty Start Date End Date Katja Tony, GISELE [address] [place] [address] PCP - General Family Medicine 11/30/20 documented as of this encounter
--- OUTSIDE RECORDS SUMMARY | 2024-06-16 10:59 | XMS_ITS | Encounter Summary ---
Author Organization [employer] [facility] Address [address] [facility] 7[address] [place] [address] Care Team Providers Care Implement Mechanic Name Role Phone [facility] Primary Care Provider [phone] Reason for Visit * Reason Onset Date Comments Referral 07/23/2023 Encounter Details Date Type Department Care Team ([facility] st Contact Info) Description 07/23/2023 Telephone [facility] MEDICINE [address] [place], [place] [phone] [facility] [address] [place], [place] [phone] Referral Social History Tobacco Use Types Packs/Day [...] spasm And sent to [facility] in [place] * Telephone Encounter - Riaz Zaman - [...] If any questions please contact pt at [phone]. [facility] fax: [phone]. documented in this encounter Plan of Treatment Not on file documented as of this encounter Visit Diagnoses Not on filedocumented in this encounter Additional Health Concerns Assessment Noted Time PHQ-9 Depression Total Score: 1 06/11/19 24 10:23 AM EDT documented as of this encounter Care Teams Implement Mechanic Relationship Specialty Start Date End Date Katja Tony FNP [address] [place] [address] PCP - General Family Medicine 11/30/20 documented as of this encounter
--- OUTSIDE RECORDS SUMMARY | 2024-06-16 10:59 | XMS_ITS | Encounter Summary ---
Author Organization [employer] [facility] Address [address] [facility] 7t [place] [address] Care Team Providers Care Potato Peeling Machine Operator Name Role Phone Katja Tony [facility] Primary Care Provider [phone] Reason for Visit * Reason Comments Med Refill Encounter Details Date Type Department Care Team (Late st Contact Info) Description 05/10/2023 Refill [facility] MEDICINE [address] [place], [place] [phone] Katja Tony [facility] [address] [place], [place] [phone] Social History Tobacco Use Types Packs/Day Years [...] documented as of this encounter Care Teams Potato Peeling Machine Operator Relationship Specialty Start Date End Date Katja Tony, GISELE [address] [place] [address] PCP - General Family Medicine 11/30/20 documented as of this encounter
--- OUTSIDE RECORDS SUMMARY | 2024-06-16 10:59 | XMS_ITS | Encounter Summary ---
Author Organization [employer] [facility] Address [address] [facility] 7t [place] [address] Care Team Providers Care Curb Hop Name Role Phone [facility] Primary Care Provider [phone] Reason for Visit * Reason Onset Date Comments Med Refill 05/22/2023 Encounter Details Date Type Department Care Team (Late st Contact Info) Description 05/22/2023 Telephone [facility] MEDICINE [address] [place], [place] [phone] [facility] [address] [place], [place] [phone] Med Refill Social History Tobacco Use Types [...] 9:02 AM EDT Medication was sent to [facility] #[id number] on 05/01/23 #90 with 1 refill. * Telephone Encounter - Timothy Leahy - 05/22/2023 8:59 AM EDT TC from pt requesting medication refill. Medications needing refill : Enalapril-hydroCHLOROthiazide 5-12.5 MG tablet To be sent to: [id number] - [place] - [address] documented in this encounter Plan of Treatment Not on file documented as of this encounter Visit Diagnoses Not on filedocumented in this encounter Additional Health Concerns Assessment Noted Time PHQ-9 Depression Total Score: 0 04/16/19 9:00 AM EST documented as of this encounter Care Teams Curb Hop Relationship Specialty Start Date End Date Katja Tony FNP [address] [place] [id number] PCP - General Family Medicine 11/30/20 documented as of this encounter
== END 2024-06-16 10:32 | disposition home or self-care (01) ==
LOC: HO.PMC 09:50
PROVIDERS: PCP Registered Nurse; Referring Provider Registered Nurse; Visit Provider Nurse Practitioner Family
DX: M53.3 Sacrococcygeal disorders, not elsewhere classified (principal); G89.29 Other chronic pain; M25.551 Pain in right hip; M25.552 Pain in left hip; M54.50 Low back pain, unspecified; M46.1 Sacroiliitis, not elsewhere classified
CPT/HCPCS: 99204

== ENCOUNTER → 2024-06-16 09:49 | Outpatient (BNVA) | payer OTHER, SELFPAY | PROVIDERS: PCP Registered Nurse; Referring Provider Registered Nurse; Visit Provider Nurse Practitioner Family | DX: M53.3 Sacrococcygeal disorders, not elsewhere classified (principal); M25.551 Pain in right hip; M25.552 Pain in left hip; G89.29 Other chronic pain; M54.50 Low back pain, unspecified; M46.1 Sacroiliitis, not elsewhere classified | CPT/HCPCS: 99202 ==

== ENCOUNTER 2024-08-05 06:14 | Outpatient (REF) | payer OTHER, SELFPAY ==
--- NOTE | ~2024-08-05 | FL_ITS ---
EXAMINATION: FL GUIDANCE ONLY HISTORY: M46.1 - Sacroiliitis, not elsewhere classified COMPARISON: None available. TECHNIQUE: Fluoroscopy time: 0.1 minutes. Cumulative Dose: 1.36 mGy. DAP: 0.0237 mGym2 Images: 4. FINDINGS: Fluoroscopic spot films of the pelvis demonstrate needles and contrast material in the regions of the bilateral sacroiliac joints. FL/FL guidance in treatment room IMPRESSION: Fluoroscopy during procedure. Please see procedure report for additional information. Electronically signed by: Westley Remy MD 08/05/2024 02:34 PM EDT
== END 2024-08-05 06:15 | disposition home or self-care (01) ==
LOC: CF 06:14
PROVIDERS: Visit Provider Anesthesiology
DX: M46.1 Sacroiliitis, not elsewhere classified (principal)
CPT/HCPCS: 27096; J2003; J2795; J3301; Q9967

== ENCOUNTER 2024-08-05 10:24 | Outpatient (AMB) | payer OTHER, SELFPAY ==
[2024-08-05 10:31] VITALS: BP 145/74; PULSE 78; RESP 18; O2SAT 99
--- NOTE | 2024-08-05 10:31 | MHC.OFFVIS ---
Vital Signs 08/05/24 10:31 08/05/24 10:55 Weight 140 lb BP 145/74 H 131/64 Blood Pressure Location Lt brachial Lt brachial Position Sitting Sitting Respiration 18 Pulse 78 73 Pulse Source Pulse Oximeter Pulse Oximeter Pulse Oximetry (%) 99 97 Oxygen Delivery Method Room Air Room Air Intake Visit Reasons: BILATERAL SIJ INJECTIONS/ATIVAN REQ Wall To Wall Carpet Installer Required: Yes Wall To Wall Carpet Installer Language: Boss Dyer Services: Wall To Wall Carpet Installer Offered & Declined Wall To Wall Carpet Installer Name: daughter interpreting Allergies No Known Allergies Allergy (Verified 08/05/24 10:32) [facility] Medical History Hypertension Hyperthyroidism Osteopenia Chronic right-sided low back pain without sciatica Chronic hip pain, bilateral Social History Alcohol intake: never Patient Tobacco Use Status: Never used Tobacco Physical Exam Vital Signs: Last Vital Signs Pulse 73 08/05/24 10:55 Resp 18 08/05/24 10:31 BP 131/64 08/05/24 10:55 Pulse Ox 97 08/05/24 10:55 Oxygen Delivery Method Room Air 08/05/24 10:55 Assessment & Plan Assessment & Plan (1) Sacroiliitis: Code(s): M46.1 - Sacroiliitis, not elsewhere classified Category: Medical (2) Chronic sacroiliac joint pain: Code(s): M53.3 - Sacrococcygeal disorders, not elsewhere classified; G89.29 - Other chronic pain Category: Medical Plan Sacroiliac joint injection Informed consent was explained thoroughly to the patient.? All questions about benefits and risks for the procedure were answered. Patient came to the operating room and was positioned prone on the operating table with the pillow under the abdomen.? The lower back and buttocks of the patient were prepped with ChloraPrep prepped and draped with sterile utility towels.? Sterilely draped C-arm was brought over the operating field and sq picture of patient's pelvis was demonstrated on the screen.? For each joint tilting C-arm contralateral to the site of the joint the most posterior portion of the joints was superimposed with anterior silhouette of the joint.? Skin was injected in the projection of the joint slightly medial to the location of the joint with 25 gauge 1/2 inch needle using local lidocaine 2% . After that 22 gauge 3 and 1/2 inch needle was driven to the right and left joint in tunnel vision fashion.? When needle entered the joint capsule injection of the contrast was performed demonstrating intra-articular and minimally periarticular spread of the contrast.? After that 4 cc. of ropivacaine 0.5% mixed with Kenalog 20 mg was injected into each joint. (the patient is diabetic and does not have blood sugar machine at home.)? Upon completion of the injections the needles were removed, Band-Aids were applied.? Upon completion of the injection patient was taken outside of the operating room to the recovery room where recovered uneventfully. Orders: Orders FL guidance in treatment room Today M46.1 - Sacroiliitis, not elsewhere classified Medications: New lorazepam (Ativan) Take 30 minutes prior to arrival to procedure 1 mg PO ONCE 1 tab 0RF anxiety Coding Level of Care Code Procedure Only Diagnoses Sacroiliitis M46.1 Chronic sacroiliac joint pain M53.3; G89.29
[2024-08-05 10:55] VITALS: BP 131/64; PULSE 73; O2SAT 97
== END 2024-08-05 10:55 | disposition home or self-care (01) ==
LOC: HO.PMCPRC 10:24
PROVIDERS: PCP Registered Nurse; Visit Provider Anesthesiology
DX: M46.1 Sacroiliitis, not elsewhere classified (principal); M53.3 Sacrococcygeal disorders, not elsewhere classified; G89.29 Other chronic pain
CPT/HCPCS: 27096

== ENCOUNTER 2024-09-04 11:13 | Outpatient (AMB) | payer OTHER, SELFPAY ==
--- NOTE | 2024-09-04 11:15 | A.OFFVIS_ITS ---
Vital Signs 09/04/24 11:19 Height 5 ft 3 in Weight 135 lb BMI 23.9 BP 141/70 H Blood Pressure Location Lt brachial Position Sitting Pulse 69 Pulse Source Pulse Oximeter Pulse Oximetry (%) 97 Oxygen Delivery Method Room Air Intake Visit Reasons: BILATERAL SIJ INJECTIONS Intake Note: Pain today 0/10 Network Security Officer Required: Yes Network Security Officer Language: Case Management Director Services: Network Security Officer Present Network Security Officer Name: Daughter Accompanied by: Daughter Allergies No Known Allergies Allergy (Verified 09/04/24 11:19) HPI Comments Details: The patient is a 74-year-old female presenting with a follow-up after recent bilateral sacroiliac joint therapeutic injections. She received these injections on August 05, exactly a month ago, with Dr. Naqvi. The patient reports 100% ongoing pain relief for chronic low back pain, buttock, and hip pain since the injections. She experiences no pain during activities such as sitting, driving, and sleeping. The patient was advised to monitor her condition and report if the pain returns, although it is expected that she will have more than three months of pain relief. Denies any recent cough, cold, infection, fever or any significant changes in medical history since last office visit. Past Procedures: 08/05/24: Bilateral Therapeutic SIJ injections-100% ongoing pain relief PRIOR: The patient is a pleasant 74-year-old Armenian speaking female presenting with chronic low back pain and bilateral hip pain. The pain has been persistent for many years and is aggravated by cold weather, heavy activities, and positional changes during sleep. Her pain, rated at 9/10, improves slightly with rest. The pain, described as dull and achy, also radiates to the left leg. She avoids right-sided sleeping due to increased hip pain. Her medical history includes back surgery over 20 years ago and a back injection prior to surgery with minimal improvement. Imaging performed revealed degenerative changes in her hips and spine and degenerative changes in the bilateral sacroiliac joints. She has osteopenia, for which she takes calcium and vitamin D. Previous physical therapy provided no relief. Recent imaging isacc cates facet arthropathy in the spine. - Onset and Timing: Chronic with several years' duration. - Quality: Constant, dull, sore, aching, heavy, and tingling. - Location: Primarily low back and both hips, radiating to the left leg. - Exacerbating Factors: Cold weather, heavy lifting, climbing stairs, changing sleep positions. - Relieving Factors: Rest. - Interference: Difficulty with sleep position, prefers not to sleep on the right side due to hip pain. - Affect: Pain impacts daily living and sleep; potential psychological strain not discussed. - Analgesia: Currently using ibuprofen 400 mg and cyclobenzaprine 5 mg with only minor relief. - Adverse Effects: None reported. - Activities of Daily Living: Pain interferes with rest, sleep, and general movement; physical therapy was ineffective. - Aberrant Drug Related Behaviors: None reported. [facility] Medical History Hypertension Hyperthyroidism Osteopenia Chronic right-sided low back pain without sciatica Chronic hip pain, bilateral Social History Alcohol intake: never Patient Tobacco Use Status: Never used Tobacco Review of Systems Const All systems reviewed & are unremarkable except as noted in HPI and below Physical Exam Vital Signs: Last Vital Signs Pulse 69 09/04/24 11:19 BP 141/70 H 09/04/24 11:19 Pulse Ox 97 09/04/24 11:19 Oxygen Delivery Method Room Air 09/04/24 11:19 BMI result Body Mass Index 23.9 General: Appears afebrile. Alert and oriented. Mood and affect appropriate. Follows and participates in conversation appropriately. Respiratory effort is unlabored. No cough. Able to transition from sit to stand unassisted. Ambulates with bilaterally normal heel strike and toe off. Back/Spine/Pelvis Cervical Spine: cervical ROM normal, cervical muscular tenderness, No Cervical spine scars present and No Cervical spine tenderness Thoracic/Lumbar Spine: thoracic and lumbar spine normal to inspection, Thoracic/lumbar spine scar(s), Lasegue's sign negative, straight leg raise negative bilaterally, pain with thoraco-lumbar ROM, paraspinal muscle tenderness, thoraco-lumbar ROM limited, No thoracic spinal tenderness and No lumbar spinal tenderness Sacroiliac joints: bilaterally tender to palpation (mild) Extrem General: Yes capillary refill normal, Yes no clubbing, cyanosis or edema and Yes no calf tenderness Results Reviewed Results Reviewed: XR DEXA axial skeleton 05/19/24 IMPRESSION: Based on bone mineral density, and according to World Health Organization (WHO) criteria, the diagnosis is consistent with osteopenia. XR PELVIS 1-2 VIEWS, XR HIP 2 OR MORE VIEWS LEFT, XR HIP 2 OR MORE VIEWS RIGHT 05/19/24 HISTORY: PAIN COMPARISON: There are no prior studies for comparison. FINDINGS: A single AP view of the pelvis and 2 views of each hip are submitted. Osseous mineralization is normal. There is no fracture or dislocation. The right hip joint space is maintained. There is mild narrowing of the left hip. The soft tissues are unremarkable. IMPRESSION: Mild narrowing of the left hip. XR LUMBOSACRAL SPINE 04/16/23 CLINICAL INFORMATION: Patient daughter states low back pain, right-sided, for one week, no injury. Difficult to get images of L5-S1, best images obtained per technologist. COMPARISON: 08/15/2021 lumbar spine radiographs. TECHNIQUE: Three views of the lumbosacral spine.Difficult to get images of L5-S1, best images obtained per technologist. FINDINGS: The bones are diffusely demineralized. Facet arthritis in the lower lumbar spine. Degenerative changes with sclerosis on images of the bilateral sacroiliac joints. Degenerative changes in the imaged lower thoracic spine. Redemonstration of mild endplate concavities at L4 and L5. Mild degenerative changes with loss of disc space height at L4-L5 and L5-S1. Visualization limited due to overlying bone and soft tissue structures. Atherosclerotic aortoiliac calcifications. IMPRESSION: 1. Mild degenerative disc disease at L4-L5 and L5-S1. 2. Facet arthritis in the lower lumbar spine. 3. Degenerative changes in the bilateral sacroiliac joints. Assessment & Plan Assessment & Plan (1) Chronic sacroiliac joint pain: Code(s): M53.3 - Sacrococcygeal disorders, not elsewhere classified; G89.29 - Other chronic pain Category: Medical (2) Sacroiliitis: Code(s): M46.1 - Sacroiliitis, not elsewhere classified Category: Medical Plan: Plan The patient is advised to continue monitoring her condition and report when her low back and buttock pain returns to baseline. It is expected that she will have more than three months of pain relief from the injections. Patient denies any untoward effects from recent injections. She states significant improvement in her daily activities and functioning, mobility and sleep since procedure. All questions and concerns have been answered and patient agreed with the plan. Follow up as needed. Patient was informed and verbally consented to the use of an ambient scribe for clinic note documentation during this visit. Coding Level of Care Code Est Pt Level 3 (48021) Complex EM visit Add On G2211 Diagnoses Chronic sacroiliac joint pain M53.3; G89.29 Sacroiliitis M46.1
[2024-09-04 11:19] VITALS: BP 141/70; PULSE 69; O2SAT 97; BMI 23.9
--- OUTSIDE RECORDS SUMMARY | 2024-09-04 12:02 | XMS_ITS | Data Portability ---
Author Organization [employer] [facility], [place] [employer] Address [address] [place] [address] Care Team Providers Care Human Resource Intern Name Role Phone [facility] Referring Provider [facility] Referring Provider Assessment No assessment recorded. Plan of Treatment Reminders Order Date Submit Date Provider Last Modified By Organization Details Last Modified Time Details Appointments None recorded. Lab None recorded. Referral None recorded. Procedures None recorded. Surgeries None recorded. Imaging None recorded. Medication Orders azithromyci n 250 mg tablet 2021 022 [id number], [address], [place], [id number], 2 14:30:31 amoxicillin 875 mg-potassiu m clavulanate 125 mg tablet 2021 022 [facility][id number], [address], [place], [id number], 2 14:30:32 Patient TargetsNo targets recorded. Patient [...] in Arterial blood by Pulse oximetry Systolic And Diastolic Provider Name and Address Organization Details Last Updated DateTime 2 90 /min 98.5 [degF] 18 /min 98 % 98 % 120/70 mm[Hg] Not Available [facility] - production 2 [...] 2462 Татьяна Salmon MD Main - [facility] [address] [place] [phone] 09/02/2021 14:12:18 11/02/2021 11:30:30 Dyspnea [id number] R06.00 dyspnea x1 week. R side w/ [...] Recorded Advance Directives Directive None Recorded Payers Insurance Date Sequence Insurance Name Policy Number Policy Dangelo Covered Member ID Dangelo Member ID Guarantor Name 04/10/2023 1 [facility] - DOS PRIOR TO 2022 - DUAL ELIGIBLE (MEDICARE REPLACEMENT/AD VANTAGE - HMO) Shanelle Segura [id number] Shanelle Segura 04/10/2023 1 [facility] - DOS ON OR AFTER 2022 - DUAL ELIGIBLE - HALF-WAY OPTIONS AND ONE CARE (MEDICARE REPLACEMENT/AD VANTAGE - HMO) Shanelle Segura [id number] Shanelle Segura Notes Date Note Type Note [...] ................... ................... ................... ................... ................... ................... ........ Musical Therapist Note: Pt states she was at the [...] ................... ........ Disposition: Fulfilled Татьяна Salmon MD [address] [facility],[address], [place], [phone], Emailage 09/02/2021 17:51:11 OBGyn Episode No OBEpisode recorded.
--- OUTSIDE RECORDS SUMMARY | 2024-09-04 12:02 | XMS_ITS | Encounter Summary ---
Author Organization [employer] Address [address] [place] [address] [address] Care Team Providers Care Heat Pump Installer Name Role Phone [facility] Primary Care Provider [phone] Reason for Visit * Reason Comments Med Refill Encounter Details Date Type Department Care Team (Late st Contact Info) Description 05/10/2023 Refill [facility] [address] [place], [place] [phone] [facility] [address] [place], [place] [phone] Social History Tobacco Use Types Packs/Day Years [...] Care Team (Late st Contact Info) Description 11/07/2024 10:15 AM EDT Office Visit [facility] [address] [place] [id number] [facility] [address] [place] [address] documented as of this encounter Visit Diagnoses Not on filedocumented in this encounter Additional Health Concerns Assessment Noted Time PHQ-9 Depression Total Score: 0 04/16/19 24 9:00 AM EST documented as of this encounter Care Teams Heat Pump Installer Relationship Specialty Start Date End Date Katja Tony FNP [address] [place] [address] PCP - General Family Medicine 11/30/20 documented as of this encounter
== END 2024-09-04 11:48 | disposition home or self-care (01) ==
LOC: HO.PMC 11:13
PROVIDERS: PCP Registered Nurse; Visit Provider Nurse Practitioner Family
DX: M53.3 Sacrococcygeal disorders, not elsewhere classified (principal); G89.29 Other chronic pain; M46.1 Sacroiliitis, not elsewhere classified
CPT/HCPCS: 99213; G2211

== ENCOUNTER → 2024-09-04 11:13 | Outpatient (BNVA) | payer OTHER, SELFPAY | PROVIDERS: PCP Registered Nurse; Visit Provider Nurse Practitioner Family | DX: M53.3 Sacrococcygeal disorders, not elsewhere classified (principal); M46.1 Sacroiliitis, not elsewhere classified; G89.29 Other chronic pain | CPT/HCPCS: 99212 ==